=== PATIENT | female | born 1960 | race African-American/Black ===

== ENCOUNTER 2016-07-09 08:19 | Day surgery (SDC) | payer BC, MEDICAID, OTHER ==
[~2016-07-09 08:19] MED LIST: CHONDR SU A NA/HYALUR INTRAOC KIT (SURGICARE) ONE; EPINEPHRINE INJ/PF 1 MG/1 ML AMPULE ONE; KETOROLAC TROMETHAMINE 0.45% 4 DROP/0.4 ML DROPERETTE OS PRN; LIDOCAINE 1% INJ-PF (10 MG/ML) 30 ML SDV ONE
[2016-07-09] MEDS: BESIFLOXACIN HCL 0.6% OPH SUSP 5 ML BOTTLE OS PRN ×4 (09:22→10:14)
[2016-07-09] MEDS: TROPICAMIDE 1% OPH SOLN 3 ML OS PRN ×3 (09:22→09:42)
[2016-07-09] MEDS: CYCLOPENTOLATE 0.2%/PHENYLEPHRINE 1% OPH SOLN 2 ML OS PRN ×3 (09:22→09:42)
[2016-07-09] MEDS: TETRACAINE HCL 0.5% OPH SOLN 0.6 ML DROPERETTE OS PRN ×3 (09:23→09:58)
[2016-07-09] MEDS ORDERED: FENTANYL CITRATE INJ/PF 100 MCG/2 ML AMPUL ONE (09:33)
[2016-07-09] MEDS ORDERED: MIDAZOLAM 2 MG/2 ML INJ ONE (09:33)
[2016-07-09] MEDS: TOBRAMYCIN SULFATE/DEXAMETH OPH OINTMENT 3.5 GM ONE ×2 (10:07→10:14)
== END 2016-07-09 11:03 | disposition home or self-care (01) ==
LOC: SC 08:19
PROVIDERS: ATTEND Ophthalmology
PROC: 08RK3JZ Replacement of Left Lens with Synthetic Substitute, Percutaneous Approach (ICD-10-PCS; principal; 2016-07-09 09:45)
DX: H25.12 Age-related nuclear cataract, left eye (principal); Z79.899 Other long term (current) drug therapy; Z79.84 Long term (current) use of oral hypoglycemic drugs; Z88.6 Allergy status to analgesic agent; Z88.0 Allergy status to penicillin; E11.9 Type 2 diabetes mellitus without complications; I10 Essential (primary) hypertension; E78.00 Pure hypercholesterolemia, unspecified; E03.9 Hypothyroidism, unspecified; Z79.4 Long term (current) use of insulin; G20 Parkinson's disease
CPT/HCPCS: 82962; 66984; V2630; J2250; J3490 ×5; J0171; J3010; 142

== ENCOUNTER → 2016-08-15 | Outpatient (CLI) | payer MEDICAID, OTHER | LOC: RAD 10:30 | DX: M25.621 Stiffness of right elbow, not elsewhere classified (principal); M25.631 Stiffness of right wrist, not elsewhere classified; M25.672 Stiffness of left ankle, not elsewhere classified; M25.671 Stiffness of right ankle, not elsewhere classified ==

== ENCOUNTER → 2016-08-19 | Outpatient (CLI) | payer MEDICAID | LOC: WI 10:33 | PROVIDERS: ATTEND Internal Medicine | DX: Z12.31 Encounter for screening mammogram for malignant neoplasm of breast (principal) | CPT/HCPCS: 77067; G0202 ==

== ENCOUNTER → 2016-09-29 | Outpatient (CLI) | payer MEDICAID ==
--- NOTE | 2016-09-29 10:29 | RADIOLOGY REPORT (SQ) ---
EXAM DESCRIPTION: HIP LEFT AP/LATERAL COMPLETED DATE/TIME: 09/29/2016 9:25 am REASON FOR STUDY: PAIN IN LEFT HIP M25.552 PAIN IN LEFT HIP COMPARISON: None. NUMBER OF VIEWS: Two views. TECHNIQUE: AP pelvis and additional frog-leg view of the left hip. LIMITATIONS: None. FINDINGS: MINERALIZATION: Normal. LEFT HIP: No fracture or dislocation. No worrisome bone lesions. RIGHT HIP: No fracture or dislocation. No worrisome bone lesions. PUBIS AND ISCHIUM: No fracture. PELVIS: No fracture. SACRUM: No fracture or dislocation. No worrisome bone lesions. LOWER LUMBAR SPINE: No fracture or dislocation. No worrisome bone lesions. No significant disc disea se. SOFT TISSUES: No findings. OTHER: No other significant finding. IMPRESSION: NEGATIVE STUDY OF THE LEFT HIP AND PELVIS. NO RADIOGRAPHIC EVIDENCE OF ACUTE INJURY. TECHNICAL DOCUMENTATION: JOB ID: [id number] [employer]- All Rights Reserved
== END ==
LOC: RAD 09:09
PROVIDERS: ATTEND Internal Medicine
DX: M25.552 Pain in left hip (principal)

== ENCOUNTER → 2016-11-27 | Outpatient (CLI) | payer MEDICAID ==
--- NOTE | 2016-11-27 11:27 | RADIOLOGY REPORT (SQ) ---
EXAM DESCRIPTION: ARTERIAL LOWER EXTREM BILAT COMPLETED DATE/TIME: 11/27/2016 10:39 am REASON FOR STUDY: PAD I70.25 ATHSCL [place] ARTERIES OF EXTREMITIES W ULCERATION COMPARISON: None. TECHNIQUE: Dynamic and static lu scale and color images acquired of the lower extremity arteries. Additional selected spectral images recorded. ABIs recorded. LIMITATIONS: None. FINDINGS: RIGHT LEG: ABIS: Normal, over 1.0. INFLOW ARTERIES: Normal, no obstruction evident. FEMORAL ARTERIES:Multiphasic waveforms. Normal, no velocity elevation to suggest focal stenosis. Norm al color Doppler evaluation. No aneurysm. POPLITEAL ARTERY:Multiphasic waveforms. Normal, no velocity elevation to suggest focal stenosis. Norm al color Doppler evaluation. No aneurysm. PATENT TIBIOPERONEAL TRUNK AND 3 VESSEL RUNOFF: Yes, normal vessels. TBI: Not performed. OTHER: Toe plethysmography was performed. No odor discernible waveform in the right great toe. The right 2nd, 3rd, 4th, and 5th toes demonstrate normal waveforms with brisk upstrokes. LEFT LEG: ABIS: Normal, over 1.0. INFLOW ARTERIES: Normal, no obstruction evident. FEMORAL ARTERIES:Multiphasic waveforms. Normal, no velocity elevation to suggest focal stenosis. Norm al color Doppler evaluation. No aneurysm. POPLITEAL ARTERY:Multiphasic waveforms. Normal, no velocity elevation to suggest focal stenosis. Norm al color Doppler evaluation. No aneurysm. PATENT TIBIOPERONEAL TRUNK AND 3 VESSEL RUNOFF: Yes, normal vessels. TBI: Not performed. OTHER: Toe plethysmography is normal. IMPRESSION: NORMAL BILATERAL LOWER EXTREMITY ARTERIAL DOPPLER WITH ABIs. Depressed plethysmography waveforms right great toe, could indicate isolated right great toe arterial insufficiency COMMENT: [facility] NORMAL: Greater than 1.0 MINIMAL DISEASE: 0.9 to 1.0 CLAUDICATION: 0.5 to 0.9 SEVERE ARTERIAL DISEASE: Less than 0.5 [facility] NORMAL: Greater than 1.0 (1.2 If Heavy Calcifications) NORMAL TO MILD ISCHEMIA: 0.8 to 1.0 MODERATE ISCHEMIA: 0.4 to 0.8 SEVERE ISCHEMIA: Less than 0.4 TECHNICAL DOCUMENTATION: JOB ID: [id number] [employer]- All Rights Reserved
== END ==
LOC: SP 09:31
PROVIDERS: ATTEND Preventive Medicine Undersea and Hyperbaric Medicine
DX: I70.25 Atherosclerosis of native arteries of other extremities with ulceration (principal)
CPT/HCPCS: 93925

== ENCOUNTER → 2017-01-27 | Outpatient (CLI) | payer MEDICAID ==
--- NOTE | 2017-01-27 13:28 | RADIOLOGY REPORT (SQ) ---
EXAM DESCRIPTION: MRI HEAD WITHOUT COMPLETED DATE/TIME: 01/27/2017 12:48 pm REASON FOR STUDY: EXTRAPYRAMIDAL G25.9 EXTRAPYRAMIDAL AND MOVEMENT DISORDER, UNSPECIFIED COMPARISON: None. TECHNIQUE: Multiplanar imaging includes non-contrasted T1, T2, FLAIR, and diffusion with ADC map seq uences. Images stored on PACS. LIMITATIONS: None. FINDINGS: ANATOMY: No developmental anomalies. Normal vascular flow voids. Pituitary fossa normal. CSF SPACES: Normal in size and contour. No hemorrhage. CEREBRUM: Sulci and gyri normal in size and contour. Spotty increased bifrontal and biparietal white matter signal on FLAIR imaging from small vessel disease. No evidence of hemorrhage, mass, or extra axial fluid collection. POSTERIOR FOSSA: Decreased cons acuity of the substantia nigra on axial T2 and FLAIR. This could cor relate with parkinsonism. No hemorrhage. No edema, masses or mass effect. Internal auditory canals, cerebello-pontine angles, mastoids normal. DIFFUSION IMAGING: Negative for acute or sub-acute infarction. ORBITS: No masses. Globes post cataract surgery. PARANASAL SINUSES: No fluid levels. Mucosa normal. OTHER: No other significant finding. IMPRESSION: Substantia nigra poorly visualized on the T2 and FLAIR images. This may correlate with parkinsonism. Minimal age-appropriate biparietal small vessel disease EVIDENCE OF ACUTE STROKE: NO. TECHNICAL DOCUMENTATION: JOB ID: [id number] [employer]- All Rights Reserved
== END ==
LOC: RAD 13:01
PROVIDERS: ATTEND Internal Medicine
DX: G25.9 Extrapyramidal and movement disorder, unspecified (principal)
CPT/HCPCS: 70551

== ENCOUNTER → 2017-04-10 | Outpatient (CLI) | payer MEDICAID ==
--- NOTE | 2017-04-10 12:00 | RADIOLOGY REPORT (SQ) ---
EXAM DESCRIPTION: HIP LEFT AP/LATERAL COMPLETED DATE/TIME: 04/10/2017 11:47 am REASON FOR STUDY: PAIN IN LEFT HIP M25.562 PAIN IN LEFT KNEE M25.552 PAIN IN LEFT HIP COMPARISON: Left hip films 09/29/2016 NUMBER OF VIEWS: Two views. TECHNIQUE: AP pelvis and additional frog-leg view of the left hip. LIMITATIONS: None. FINDINGS: MINERALIZATION: Normal. LEFT HIP: No fracture or dislocation. No worrisome bone lesions. RIGHT HIP: No fracture or dislocation. No worrisome bone lesions. PUBIS AND ISCHIUM: No fracture. PELVIS: No fracture. SACRUM: No fracture or dislocation. No worrisome bone lesions. LOWER LUMBAR SPINE: Lower lumbar facet arthropathy left greater than right at L4-5 and L5-S1 SOFT TISSUES: No findings. OTHER: No other significant finding. IMPRESSION: Degenerative changes lower lumbar spine. No hip or pelvis acute fracture. No significant left hip joint space narrowing or bony spurring. TECHNICAL DOCUMENTATION: JOB ID: [id number] [employer]- All Rights Reserved
--- NOTE | 2017-04-10 12:02 | RADIOLOGY REPORT (SQ) ---
EXAM DESCRIPTION: KNEE LEFT 2 VIEWS COMPLETED DATE/TIME: 04/10/2017 11:47 am REASON FOR STUDY: PAIN IN LEFT KNEE M25.562 PAIN IN LEFT KNEE M25.552 PAIN IN LEFT HIP COMPARISON: None. NUMBER OF VIEWS: Two views. TECHNIQUE: AP and lateral radiographic images acquired of the left knee. LIMITATIONS: None. FINDINGS: MINERALIZATION: Subtle 1 cm area of decreased bone density in the distal left femoral meta physis. This is of uncertain clinical significance. Consider bone scan or MRI for followup BONES: No acute fracture or dislocation. No worrisome bone lesions. JOINT: No suprapatellar knee joint effusion. Moderate patellofemoral compartment joint space narrowi ng and bony spurring. Mild medial and lateral compartment joint space narrowing and bony spurring. SOFT TISSUES: No soft tissue swelling. No radio-opaque foreign body. OTHER: No other significant finding. IMPRESSION: Osteoarthritis. No acute fracture or malalignment. Subtle 1 cm area of demineralization, distal left femoral metaphysis. Consider bone scan or MRI for further evaluation TECHNICAL DOCUMENTATION: JOB ID: [id number]- All Rights Reserved
== END ==
LOC: OD 11:20
PROVIDERS: ATTEND Internal Medicine
DX: M25.562 Pain in left knee (principal); M25.552 Pain in left hip

== ENCOUNTER → 2017-06-17 | Outpatient (CLI) | payer MEDICAID ==
--- NOTE | 2017-06-22 11:21 | XCELERA REPORT ---
[address] [address] Lower Extremity Arterial Evaluation Name: JUN BOSS Age: 56 yrs Gender: Female : 1960 Patient Status: Outpatient Patient Location: Study Date: 06/17/2017 01:24 PM Procedure: A color flow and duplex scan of the lower extremity arteries was performed bilaterally with velocity and waveform anaylsis. Ankle brachial indicies performed. Reason For Study: PVD Ordering Physician: COLLIN MENJIVAR Performed By: Debby Staton Measurements and Calculations Right Left FINE PATCHER PSV 152.4 153.2 cm/sec Prox PFA PSV -94.8 -115.2 cm/sec Prox SFA PSV -117.5 -132.0 cm/sec Mid SFA PSV -110.6 -106.8 cm/sec Dist SFA PSV -95.5 -76.1 cm/sec Prox Pop A PSV 76.1 53.7 cm/sec Dist BORIS PSV 101.2 120.2 cm/sec Dist SEWER BRICKLAYER PSV 88.4 -73.3 cm/sec Corey Pedis PSV 103.1 102.6 cm/sec Right Side Arterial Evaluation Normal velocity and triphasic waveforms noted from the Common Femoral artery to the infregeniculate vessels. 0-19% stenosis at the Femoral artery. Ankle Brachial index is 1.00. Left Side Arterial Evaluation Normal velocity and triphasic waveforms noted from the Common Femoral artery to the infregeniculate vessels. 0-19% stenosis at the Femoral artery. Ankle Brachial index is 1.00. Interpretation Summary No hemodynamically significant lesions in the bilateral lower extremities, on duplex imaging, at rest. : COLLIN MENJIVAR > Mg Yarbrough
== END ==
LOC: SP 13:04
PROVIDERS: ATTEND Internal Medicine
DX: I73.9 Peripheral vascular disease, unspecified (principal); M79.89 Other specified soft tissue disorders
CPT/HCPCS: 93925

== ENCOUNTER → 2017-10-01 | Outpatient (CLI) | payer MEDICAID ==
--- NOTE | 2017-10-01 20:05 | WOMENS IMAGING REPORT ---
EXAM DESCRIPTION: 3D SCREENING MAMMO BILAT COMPLETED DATE/TIME: 10/01/2017 11:22 am REASON FOR STUDY: SCREENING MAMMO Z12.31 ENCNTR SCREEN MAMMOGRAM FOR MALIGNANT NEOPLASM OF [place] COMPARISON: 2017 TECHNIQUE: Standard craniocaudal and mediolateral oblique views of each breast recorded using digita l acquisition and breast tomosynthesis. LIMITATIONS: None. FINDINGS: No masses, calcifications or architectural distortion. No areas of suspicion. Read with the assistance of CAD. .[facility] - R2 Cenova Version 1.3 .[facility] - R2 Cenova Version 1.3 .[facility] - R2 Cenova Version 2.4 .[facility] [place] - R2 Cenova Version 2.4 .[facility] - R2 Supercharger Mechanic Version 9.2 IMPRESSION: NORMAL MAMMOGRAM. BIRADS 1. BREAST DENSITY: b. There are scattered areas of fibroglandular density. BIRAD: 1 NEGATIVE RECOMMENDATION: ROUTINE SCREENING Please continue yearly bilateral screening tomosynthesis in September 2018 COMMENT: The patient has been notified of the results by letter per MQSA requirements. Additional no tification policies are in place for contacting patient with suspicious or incomplete findings. Quality ID #[id number]: The [employer] recommends an annual screening mammogram for women aged 40 years or over. This facility utilizes a reminder system to ensure that all patients receive reminder letters, and/or direct phone calls for appointments. This includes reminders for routine scr eening mammograms, diagnostic mammograms, or other Breast Imaging Interventions when appropriate. Th is patient will be placed in the appropriate reminder system. The [employer] (ACR) has developed recommendations for screening MRI of the breast s in certain patient populations, to be used in conjunction with mammography. Breast MRI surveillanc e may be appropriate for women with more than 20% lifetime risk of developing breast cancer as deter mined by genetic testing, significant family history of the disease, or history of mantle radiation f or Hodgkins Disease. ACR Practice Guidelines 2008. DBT Technology DBT is a type of tomographic mammography. With conventional mammography, overlapping breast tissue ma y make lesions difficult to detect, even with good compression. DBT uses an x-ray tube that rotates a round the breast, taking images at different angles. These images are then combined to create thin sl ices of the breast that the radiologist can view as a 3D reconstruction. The [employer] unit can perform full-field digital mammograms (2D imaging); or DBT (3D imaging); or both, in a combination mode that quickly performs both the mammogram and the tomosynthesis scan while the breast is still compressed. PQRS 6045F: Fluoroscopic imaging is not utilized for breast tomosynthesis. TECHNICAL DOCUMENTATION: FINDING NUMBER: (1) ASSESSMENT: (1) JOB ID: [id number] [employer]- All Rights Reserved Reading location - IP/workstation name: [email or web address]
== END ==
LOC: RAD 10:53
PROVIDERS: ATTEND Internal Medicine
DX: Z12.31 Encounter for screening mammogram for malignant neoplasm of breast (principal)
CPT/HCPCS: 77063; 77067

== ENCOUNTER 2017-10-22 12:15 | Inpatient (IN) | payer MEDICAID ==
--- NOTE | 2017-10-22 13:16 | ER Document Report ---
ED Medical Screen (RME) - General Chief Complaint: Urinary Frequency Stated Complaint: PAINFUL URINATION Time Seen by Provider: 10/22/17 13:13 Notes: 57-year-old diabetic complains of 2 day history of excessive urination, with large-volume and with dysuria. She called her primary care provider a little while ago during lunch, and since no unanswered she came to the emergency room. I have greeted and performed a rapid initial assessment of this patient. A comprehensive ED assessment and evaluation of the patient, analysis of test results and completion of the medical decision making process will be conducted by additional ED providers. TRAVEL OUTSIDE OF THE [place] IN LAST 30 DAYS: No - Related Data Allergies/Adverse Reactions: Penicillins Allergy (Verified 10/22/17 13:10) Swelling of Throat aspirin Adverse Reaction (Intermediate, Verified 10/22/17 13:10) Past Medical History - Social History Chew tobacco use (# tins/day): No Frequency of alcohol use: None Drug Abuse: None - Past Medical History Cardiac Medical History: Reports: Hx Hypertension Denies: Hx Heart Attack Pulmonary Medical History: Denies: Hx Asthma Neurological Medical History: Denies: Hx Cerebrovascular Accident, Hx Seizures Renal/ Medical History: Denies: Hx Peritoneal Dialysis GI Medical History: Denies: Hx Hepatitis, Hx Hiatal Hernia, Hx Ulcer Infectious Medical History: Denies: Hx Hepatitis Past Surgical History: Denies: Hx Mastectomy, Hx Open Heart Surgery, Hx Pacemaker Physical Exam - Vital signs Vitals: Temp Pulse Resp BP Pulse Ox 98.6 F 68 16 125/58 L 97 10/22/17 12:44 10/22/17 12:44 10/22/17 12:44 10/22/17 12:44 10/22/17 12:44 Course - Vital Signs Vital signs: Temp Pulse Resp BP Pulse Ox 98.6 F 68 16 125/58 L 97 10/22/17 12:44 10/22/17 12:44 10/22/17 12:44 10/22/17 12:44 10/22/17 12:44 Doctor's Discharge - Discharge Referrals: COLLIN MENJIVAR MD [Primary Care Provider] - Follow up as needed
[2017-10-22] MEDS ORDERED: NORMAL SALINE 1000 ML 1,000 ML IV ONE (13:53)
[2017-10-22 14:04] LABS: APPEARANCE,URINE CLEAR; BILIRUBIN,URINE NEGATIVE (NEGATIVE); COLOR,URINE YELLOW; GLUCOSE, URINE >=500 mg/dL (NEGATIVE); KETONES,URINE NEGATIVE (NEGATIVE); LEUKOCYTE ESTERASE,URINE NEGATIVE (NEGATIVE); NITRITE,URINE NEGATIVE (NEGATIVE); PROTEIN,URINE NEGATIVE (NEGATIVE); UROBILINOGEN,URINE NEGATIVE mg/dL (<2.0)
[2017-10-22 14:05] LABS: ABSOLUTE EOSINOPHILS # (AUTO) 0.1 10^3/uL (0.0-0.6); ABSOLUTE LYMPHOCYTES (AUTO) 1.7 10^3/uL (0.5-4.7); ABSOLUTE MONOCYTES (AUTO) 0.2 10^3/uL (0.1-1.4); ABSOLUTE NEUT (AUTO) 1.9 10^3/uL (1.7-8.2); BASOPHILS % (AUTO) 1.2 % (0-2); HEMATOCRIT 36.9 % (36.0-47.0); HEMOGLOBIN 12.5 g/dL (12.0-15.5); LYMPHOCYTES % (AUTO) 42.4 % (13-45); MEAN CORPUSCULAR HEMOGLOBIN 30.7 pg (27.0-33.4); MEAN CORPUSCULAR VOLUME 90 fl (80-97); MONOCYTES % (AUTO) 5.8 % (3-13); PLATELET COUNT 189 10^3/uL (150-450); RED BLOOD COUNT 4.08 10^6/uL (3.72-5.28); RED CELL DISTRIBUTION WIDTH 12.3 % (11.5-14.0); SEGMENTED NEUTROPHILS % (AUTO) 48.6 % (42-78); TOTAL CELLS COUNTED % (AUTO) 100 %
[2017-10-22 14:26] LABS: ALANINE AMINOTRANSFERASE 30 U/L (9-52); ALBUMIN 3.8 g/dL (3.5-5.0); ALKALINE PHOSPHATASE 178 U/L (38-126); ANION GAP 10 (5-19); ASPARTATE AMINO TRANSFERASE 81 U/L (14-36); BILIRUBIN,DIRECT 0.4 mg/dL (0.0-0.4); BILIRUBIN,TOTAL 0.4 mg/dL (0.2-1.3); BLOOD UREA NITROGEN 36 mg/dL (7-20); CALCIUM 8.9 mg/dL (8.4-10.2); CARBON DIOXIDE 31 mmol/L (22-30); CHLORIDE 92 mmol/L (98-107); POTASSIUM 4.6 mmol/L (3.6-5.0); SODIUM 132.5 mmol/L (137-145); TOTAL PROTEIN 7.4 g/dL (6.3-8.2)
--- NOTE | 2017-10-22 14:45 | ER Document Report ---
ED General - General Chief Complaint: Urinary Frequency Stated Complaint: PAINFUL URINATION Time Seen by Provider: 10/22/17 13:13 Mode of Arrival: Ambulatory Information source: Patient Notes: 57 year old female with a history of diabetes presents emergency department with a 2-day history of dysuria, increased urgency, increased frequency. Patient states that her blood sugar has been running high the last couple of days. Patient has been unable to get into her primary care physician's office this week. Patient is concerned that she has a urinary tract infection. Patient denies any abdominal pain, nausea, vomiting, diarrhea, constipation. Patient also denies any vaginal bleeding, vaginal discharge. TRAVEL OUTSIDE OF THE [place] IN LAST 30 DAYS: No - HPI Onset: Other - 2 days Onset/Duration: Gradual Quality of pain: Burning Severity: Mild Associated symptoms: None Exacerbated by: Denies Relieved by: Denies Similar symptoms previously: Yes Recently seen / treated by doctor: No - Related Data Allergies/Adverse Reactions: Penicillins Allergy (Verified 10/22/17 13:10) Swelling of Throat aspirin Adverse Reaction (Intermediate, Verified 10/22/17 13:10) Past Medical History - General Information source: Patient - Social History Smoking Status: Never Smoker Chew tobacco use (# tins/day): No Frequency of alcohol use: None Drug Abuse: None Family History: Reviewed & Not Pertinent Patient has suicidal ideation: No Patient has homicidal ideation: No - Past Medical History Cardiac Medical History: Reports: Hx Hypertension Denies: Hx Heart Attack Pulmonary Medical History: Denies: Hx Asthma Neurological Medical History: Denies: Hx Cerebrovascular Accident, Hx Seizures Renal/ Medical History: Denies: Hx Peritoneal Dialysis GI Medical History: Denies: Hx Hepatitis, Hx Hiatal Hernia, Hx Ulcer Infectious Medical History: Denies: Hx Hepatitis Past Surgical History: Denies: Hx Mastectomy, Hx Open Heart Surgery, Hx Pacemaker Review of Systems - Review of Systems Constitutional: No symptoms reported EENT: No symptoms reported Cardiovascular: No symptoms reported Respiratory: No symptoms reported Gastrointestinal: No symptoms reported Genitourinary: Burning, Dysuria, Frequency, Urgency Female Genitourinary: No symptoms reported Musculoskeletal: No symptoms reported Skin: No symptoms reported Hematologic/Lymphatic: No symptoms reported Neurological/Psychological: No symptoms reported -: Yes All other systems reviewed and negative Physical Exam - Vital signs Vitals: Temp Pulse Resp BP Pulse Ox 98.6 F 68 16 125/58 L 97 07/05/18 12:44 10/22/17 12:44 10/22/17 12:44 10/22/17 12:44 10/22/17 12:44 Interpretation: Normal - Notes Notes: PHYSICAL EXAMINATION: GENERAL: Well-appearing, well-nourished and in no acute distress. HEAD: Atraumatic, normocephalic. EYES: Pupils equal round and reactive to light, extraocular movements intact, conjunctiva are normal. ENT: Nares patent, oropharynx clear without exudates. Moist mucous membranes. NECK: Normal range of motion, supple without lymphadenopathy LUNGS: Breath sounds clear to auscultation bilaterally and equal. No wheezes rales or rhonchi. HEART: Regular rate and rhythm without murmurs ABDOMEN: Soft, nontender, nondistended abdomen. No guarding, no rebound. No masses appreciated. Female : deferred Musculoskeletal: Normal range of motion, no pitting or edema. No cyanosis. NEUROLOGICAL: Cranial nerves grossly intact. Normal speech, normal gait. Normal sensory, motor exams PSYCH: Normal mood, normal affect. SKIN: Warm, Dry, normal turgor, no rashes or lesions noted. Course - Re-evaluation Re-evalutation: 10/22/17 15:19 UA is normal. Patient's blood sugar greater than 600. Patient in hyperosmolar hyperglycemic state. I spoke with Dr. Menjivar. He would like the patient started on an insulin drip without bolus. He's agreeable with admitting the patient. Patient currently stable. - Vital Signs Vital signs: Temp Pulse Resp BP Pulse Ox 98.6 F 68 16 125/58 L 97 10/22/17 12:44 10/22/17 12:44 10/22/17 12:44 10/22/17 12:44 10/22/17 12:44 - Laboratory Result Diagrams: 10/22/17 13:32 10/22/17 13:32 Laboratory results interpreted by me: 10/22/17 10/22/17 10/22/17 13:32 13:32 13:32 Sodium 132.5 L Chloride 92 L Carbon Dioxide 31 H BUN 36 H Creatinine 1.43 H Est GFR ( Amer) 45 L Est GFR (Non-Af Amer) 38 L Glucose 669 H* Hemoglobin A1c % 10.0 H AST 81 H Alkaline Phosphatase 178 H Urine Glucose (UA) >=500 H Discharge - Discharge Clinical Impression: Diabetic hyperosmolar non-ketotic state Condition: Good Disposition: ADMITTED OBSERVATION Admitting Provider: Duc Unit Admitted: Medical Floor Referrals: COLLIN MENJIVAR MD [Primary Care Provider] - Follow up as needed
[2017-10-22 14:46] LABS: GLUCOSE 669 mg/dL (75-110)
[2017-10-22] MEDS ORDERED: INSULIN REG, HUMAN 100 UNIT/ML 3 ML VIAL (PYX) IV ONE (14:52)
[2017-10-22 15:42] LABS: VENOUS BLOOD HCO3 27.8 mmol/L (20-32); VENOUS BLOOD PH 7.33 (7.30-7.42)
[2017-10-22] MEDS ORDERED: DEXTROSE 50%-WATER SYRINGE 12.5 GM/25 ML DOSE IV PRN (17:01)
[2017-10-22] MEDS ORDERED: INSULIN, REGULAR 100 UNIT/100 ML NORMAL SALINE IV PRN ×2 (17:01)
[2017-10-22] MEDS ORDERED: DEXTROSE 50%-WATER SYRINGE 25 GM/50 ML DOSE IV PRN (17:01)
[2017-10-22] MEDS ORDERED: DEXTROSE 40% GEL 15 GM TUBE X 2 PO PRN (17:01)
[2017-10-22] MEDS ORDERED: GLUCAGON,HUMAN RECOMB 1 MG INJ IM PRN ×2 (17:01→19:00)
[2017-10-22] MEDS ORDERED: DEXTROSE 40% GEL 15 GM TUBE PO PRN ×3 (17:01→19:00)
[2017-10-22] MEDS ORDERED: INSULIN REG, HUMAN 100 UNIT/ML 3 ML VIAL (PYX) ONE (17:40)
[2017-10-22] MEDS ORDERED: POTASSI CL 40 MEQ/NS 1L 1,000 ML IV PRN (18:55)
[2017-10-22] MEDS ORDERED: DEXTROSE 50%-WATER 25 GM/50 ML DISP.SYRIN IV PRN ×2 (19:00)
[2017-10-22] MEDS ORDERED: (PENDING PHARMACY ID) (Lurasidone Hcl [Latuda] 20 MG) PO SCH (19:15)
[2017-10-22] MEDS ORDERED: (PENDING PHARMACY ID) (Lisinopril [Prinivil] 20 MG) PO SCH (19:15)
[2017-10-22 19:42] LABS: URINE AMPHETAMINES SCREEN NEGATIVE; URINE BARBITURATES SCREEN NEGATIVE; URINE BENZODIAZEPINES SCREEN NEGATIVE; URINE COCAINE SCREEN NEGATIVE; URINE MARIJUANA (THC) SCREEN NEGATIVE; URINE METHADONE SCREEN NEGATIVE; URINE PHENCYCLIDINE SCREEN NEGATIVE
[2017-10-22] MEDS ORDERED: NORMAL SALINE 100 ML with INSULIN REGULAR, HUMAN 100 UNIT IV PRN ×2 (20:00)
[2017-10-22 20:11] LABS: INTERNATIONAL RATION (INR) 0.94
[2017-10-22 20:12] LABS: PARTIAL THROMBOPLASTIN TIME 25.4 SEC (23.5-35.8)
[2017-10-22 20:25] LABS: ANION GAP 9 (5-19); BLOOD UREA NITROGEN 32 mg/dL (7-20); CALCIUM 9.4 mg/dL (8.4-10.2); CARBON DIOXIDE 28 mmol/L (22-30); CHLORIDE 100 mmol/L (98-107); CREATINE KINASE 86 U/L (30-135); GLUCOSE 397 mg/dL (75-110); POTASSIUM 4.6 mmol/L (3.6-5.0); SODIUM 137.3 mmol/L (137-145)
[2017-10-22 20:26] LABS: LIPASE 600.5 U/L (23-300); PHOSPHORUS 4.4 mg/dL (2.5-4.5)
[2017-10-22 20:35] LABS: FREE T4 (FREE THYROXINE) 1.56 ng/dL (0.78-2.19)
[2017-10-22] MEDS ORDERED: (PENDING PHARMACY ID) (Dapagliflozin Propanediol [Farxiga] 10 MG) PO SCH (20:45)
[2017-10-22 20:49] LABS: THYROID STIMULATING HORMONE 0.03 uIU/mL (0.47-4.68)
[2017-10-22] MEDS: INSULIN GLARGINE,HUM.REC.ANLOG 300 UNIT/3 ML INSULN.PEN SUBCUT SCH (22:16)
[2017-10-22] MEDS: HEPARIN SOD (PORCINE) 5,000 UNIT/ML 1 ML SYRINGE SUBCUT SCH (22:16)
[2017-10-22] MEDS: CARBIDOPA/LEVODOPA 25-100 MG TABLET PO SCH (22:17)
[2017-10-22] MEDS: ATORVASTATIN CALCIUM 40 MG TABLET PO SCH (22:18)
[2017-10-22] MEDS: TRAZODONE HCL 50 MG TABLET PO SCH (22:18)
[2017-10-23 00:06] LABS: ANION GAP 7 (5-19); BLOOD UREA NITROGEN 32 mg/dL (7-20); CALCIUM 8.6 mg/dL (8.4-10.2); CARBON DIOXIDE 28 mmol/L (22-30); CHLORIDE 103 mmol/L (98-107); GLUCOSE 281 mg/dL (75-110); POTASSIUM 4.3 mmol/L (3.6-5.0); SODIUM 137.7 mmol/L (137-145)
[2017-10-23 03:33] LABS: APPEARANCE,URINE CLEAR; BILIRUBIN,URINE NEGATIVE (NEGATIVE); COLOR,URINE YELLOW; GLUCOSE, URINE >=500 mg/dL (NEGATIVE); KETONES,URINE NEGATIVE (NEGATIVE); LEUKOCYTE ESTERASE,URINE NEGATIVE (NEGATIVE); NITRITE,URINE NEGATIVE (NEGATIVE); PROTEIN,URINE 100 mg/dL (NEGATIVE); URINE SPECIFIC GRAVITY 1.017; UROBILINOGEN,URINE NEGATIVE mg/dL (<2.0)
[2017-10-23 05:01] LABS: ANION GAP 8 (5-19); BLOOD UREA NITROGEN 33 mg/dL (7-20); CALCIUM 8.8 mg/dL (8.4-10.2); CARBON DIOXIDE 27 mmol/L (22-30); CHLORIDE 105 mmol/L (98-107); GLUCOSE 99 mg/dL (75-110); POTASSIUM 4.5 mmol/L (3.6-5.0)
[2017-10-23] MEDS: HEPARIN SOD (PORCINE) 5,000 UNIT/ML 1 ML SYRINGE SUBCUT SCH ×3 (06:42→21:22)
[2017-10-23] MEDS: CARBIDOPA/LEVODOPA 25-100 MG TABLET PO SCH ×3 (06:42→21:23)
[2017-10-23 07:20] LABS: ABSOLUTE BASOPHILS # (AUTO) 0.1 10^3/uL (0.0-0.2); ABSOLUTE EOSINOPHILS # (AUTO) 0.1 10^3/uL (0.0-0.6); ABSOLUTE LYMPHOCYTES (AUTO) 1.9 10^3/uL (0.5-4.7); ABSOLUTE MONOCYTES (AUTO) 0.3 10^3/uL (0.1-1.4); ABSOLUTE NEUT (AUTO) 1.7 10^3/uL (1.7-8.2); BASOPHILS % (AUTO) 1.5 % (0-2); EOSINOPHILS % (AUTO) 3.1 % (0-6); HEMATOCRIT 33.2 % (36.0-47.0); HEMOGLOBIN 11.7 g/dL (12.0-15.5); LYMPHOCYTES % (AUTO) 47.3 % (13-45); MEAN CORPUSCULAR HEMOGLOBIN 30.9 pg (27.0-33.4); MEAN CORPUSCULAR HGB CONC 35.3 g/dL (32.0-36.0); MEAN CORPUSCULAR VOLUME 88 fl (80-97); MONOCYTES % (AUTO) 6.2 % (3-13); PLATELET COUNT 177 10^3/uL (150-450); RED BLOOD COUNT 3.79 10^6/uL (3.72-5.28); SEGMENTED NEUTROPHILS % (AUTO) 41.9 % (42-78); TOTAL CELLS COUNTED % (AUTO) 100 %; WHITE BLOOD COUNT 4.1 10^3/uL (4.0-10.5)
[2017-10-23 07:42] LABS: ALANINE AMINOTRANSFERASE 33 U/L (9-52); ALBUMIN 3.1 g/dL (3.5-5.0); ALKALINE PHOSPHATASE 92 U/L (38-126); ANION GAP 8 (5-19); ASPARTATE AMINO TRANSFERASE 79 U/L (14-36); BILIRUBIN,DIRECT 0.3 mg/dL (0.0-0.4); BILIRUBIN,TOTAL 0.4 mg/dL (0.2-1.3); BLOOD UREA NITROGEN 31 mg/dL (7-20); CALCIUM 8.8 mg/dL (8.4-10.2); CARBON DIOXIDE 27 mmol/L (22-30); CHLORIDE 104 mmol/L (98-107); CHOLESTEROL 105.11 mg/dL (0-200); CREATINE KINASE 84 U/L (30-135); GLUCOSE 128 mg/dL (75-110); POTASSIUM 4.4 mmol/L (3.6-5.0); SODIUM 138.6 mmol/L (137-145); TOTAL PROTEIN 6.4 g/dL (6.3-8.2); TRIGLYCERIDES 159 mg/dL (<150)
[2017-10-23 07:54] LABS: DIRECT LDL < 30 mg/dL (<100); VLDL CHOLESTEROL 31.8 mg/dL (10-31)
[2017-10-23] MEDS: LISINOPRIL 10 MG TABLET PO SCH (09:22)
[2017-10-23] MEDS: ESCITALOPRAM OXALATE 10 MG TABLET PO SCH (09:23)
[2017-10-23] MEDS: METFORMIN HCL 500 MG TABLET PO SCH ×2 (09:24→17:30)
[2017-10-23] MEDS: NORMAL SALINE 1000 ML 1,000 ML IV PRN ×2 (10:02→16:56)
[2017-10-23 12:04] LABS: ANION GAP 10 (5-19); BLOOD UREA NITROGEN 28 mg/dL (7-20); CALCIUM 8.3 mg/dL (8.4-10.2); CARBON DIOXIDE 25 mmol/L (22-30); CHLORIDE 105 mmol/L (98-107); GLUCOSE 118 mg/dL (75-110); POTASSIUM 4.3 mmol/L (3.6-5.0); SODIUM 139.7 mmol/L (137-145)
[2017-10-23 17:17] LABS: ANION GAP 5 (5-19); BLOOD UREA NITROGEN 29 mg/dL (7-20); CALCIUM 8.3 mg/dL (8.4-10.2); CARBON DIOXIDE 28 mmol/L (22-30); CHLORIDE 104 mmol/L (98-107); GLUCOSE 118 mg/dL (75-110); POTASSIUM 4.4 mmol/L (3.6-5.0); SODIUM 137.4 mmol/L (137-145)
--- NOTE | 2017-10-23 19:47 | PDOC H&P ---
History of Present Illness Admission Date/PCP: 10/22/17 15:30 COLLIN MENJIVAR MD History of Present Illness: JUN BOSS is a 57 year old female, She has a history of type 2 diabetes mellitus, she was relatively well controlled on Metformin and farxiga ,she came to the emergency room for evaluation of, polyuria, polydipsia, frequency of urination, she thought she had a UTI ,in the emergency room she was evaluated the serum glucose was 670, she was showing signs of hyperosmolar, nonketotic state. Because of the hyperosmolar nonketotic hyperglycemic state the emergency room physician felt patient needed to be admitted to the hospital for management. Past Medical History Cardiac Medical History: Reports: Hypertension Neurological Medical History: Reports: Other - Parkinson disease Endocrine Medical History: Reports: Diabetes Mellitus Type 2 Psychiatric Medical History: Reports: Depression Social History Smoking Status: Never Smoker Frequency of Alcohol Use: None Hx Recreational Drug Use: No Drugs: None Hx Prescription Drug Abuse: No - Advance Directive Resuscitation Status: Full Code Family History Family History: Reviewed & Not Pertinent Parental Family History Reviewed: Yes Children Family History Reviewed: Yes Sibling(s) Family History Reviewed.: Yes Medication/Allergy Home Medications: Atorvastatin Calcium [Lipitor 40 mg Tablet] 40 mg PO QHS 07/03/16 Lisinopril [Prinivil] 20 mg PO DAILY 07/03/16 Metformin HCl 500 mg PO BID 07/03/16 Carbidopa/Levodopa [Sinemet 25-100 mg Tablet] 1 each PO Q8 10/22/17 Dapagliflozin Propanediol [Farxiga] 10 mg PO DAILY 10/22/17 Escitalopram Oxalate [Lexapro 10 mg Tablet] 15 mg PO DAILY 10/22/17 Lurasidone HCl [Latuda] 20 mg PO DAILY 10/22/17 Trazodone HCl [Desyrel 50 mg Tablet] 100 mg PO HSP PRN 10/22/17 Allergies/Adverse Reactions: Penicillins Allergy (Verified 10/22/17 13:10) Swelling of Throat aspirin Adverse Reaction (Intermediate, Verified 10/22/17 13:10) Review of Systems Constitutional: PRESENT: chills Eyes: ABSENT: visual disturbances Ears: ABSENT: hearing changes Cardiovascular: ABSENT: chest pain, dyspnea on exertion, edema, orthropnea, palpitations Respiratory: ABSENT: cough, hemoptysis Gastrointestinal: ABSENT: abdominal pain, constipation, diarrhea, hematemesis, hematochezia, nausea, vomiting Genitourinary: ABSENT: dysuria, hematuria Musculoskeletal: ABSENT: joint swelling Integumentary: ABSENT: rash, wounds Neurological: ABSENT: abnormal gait, abnormal speech, confusion, dizziness, focal weakness, syncope Psychiatric: ABSENT: anxiety, depression, homidical ideation, suicidal ideation Endocrine: PRESENT: polydipsia, polyuria Hematologic/Lymphatic: ABSENT: easy bleeding, easy bruising, lymphadenopathy Physical Exam Vital Signs: Temp Pulse Resp BP Pulse Ox 98.6 F 67 16 146/66 H 98 10/23/17 15:18 10/23/17 15:18 10/23/17 15:18 10/23/17 15:18 10/23/17 15:18 Intake & Output 10/22/17 10/23/17 10/24/17 06:59 06:59 06:59 Intake Total 400 2368 Output Total 650 Balance -250 2368 Weight 81.4 kg General appearance: PRESENT: no acute distress Head exam: PRESENT: atraumatic, normocephalic Eye exam: PRESENT: conjunctiva pink, EOMI, PERRLA Mouth exam: PRESENT: dry mucosa Neck exam: PRESENT: full ROM Respiratory exam: PRESENT: clear to auscultation tiffany Cardiovascular exam: PRESENT: RRR, +S1, +S2 Vascular exam: PRESENT: normal capillary refill GI/Abdominal exam: PRESENT: normal bowel sounds, soft Rectal exam: PRESENT: deferred Neurological exam: PRESENT: alert, awake, oriented to person, oriented to place , oriented to time, oriented to situation, CN II-XII grossly intact Psychiatric exam: PRESENT: appropriate affect, normal mood Skin exam: PRESENT: dry, intact, warm. ABSENT: cyanosis, rash Results Laboratory Results: 10/23/17 07:10 10/23/17 15:55 10/22/17 10/22/17 10/22/17 19:40 19:40 19:40 WBC RBC Hgb Hct MCV MCH MCHC RDW Plt Count Seg Neutrophils % Lymphocytes % Monocytes % Eosinophils % Basophils % Absolute Neutrophils Absolute Lymphocytes Absolute Monocytes Absolute Eosinophils Absolute Basophils Sodium Potassium Chloride Carbon Dioxide Anion Gap BUN Creatinine Est GFR ( Amer) Est GFR (Non-Af Amer) Glucose Calcium Phosphorus 4.4 Magnesium 2.5 H Total Bilirubin AST ALT Alkaline Phosphatase Ammonia < 8.7 L Total Protein Albumin Triglycerides Cholesterol LDL Cholesterol Direct VLDL Cholesterol HDL Cholesterol Amylase 80 Lipase 600.5 H TSH 0.03 L Free T4 1.56 Urine Color Urine Appearance Urine pH Ur Specific [place] Urine Protein Urine Glucose (UA) Urine Ketones Urine Blood Urine Nitrite Ur Leukocyte Esterase Urine WBC (Auto) Urine RBC (Auto) 10/22/17 10/22/17 10/23/17 19:40 23:24 03:00 WBC RBC Hgb Hct MCV MCH MCHC RDW Plt Count Seg Neutrophils % Lymphocytes % Monocytes % Eosinophils % Basophils % Absolute Neutrophils Absolute Lymphocytes Absolute Monocytes Absolute Eosinophils Absolute Basophils Sodium 137.3 137.7 Potassium 4.6 4.3 Chloride 100 103 Carbon Dioxide 28 28 Anion Gap 9 7 BUN 32 H 32 H Creatinine 1.15 1.15 Est GFR ( Amer) 58 L 58 L Est GFR (Non-Af Amer) 48 L 48 L Glucose 397 H 281 H Calcium 9.4 8.6 Phosphorus Magnesium Total Bilirubin AST ALT Alkaline Phosphatase Ammonia Total Protein Albumin Triglycerides Cholesterol LDL Cholesterol Direct VLDL Cholesterol HDL Cholesterol Amylase Lipase TSH Free T4 Urine Color YELLOW Urine Appearance CLEAR Urine pH 5.0 Ur Specific [place] 1.017 Urine Protein 100 H Urine Glucose (UA) >=500 H Urine Ketones NEGATIVE Urine Blood NEGATIVE Urine Nitrite NEGATIVE Ur Leukocyte Esterase NEGATIVE Urine WBC (Auto) 0 Urine RBC (Auto) 1 10/23/17 10/23/17 10/23/17 03:42 07:10 07:10 WBC 4.1 RBC 3.79 Hgb 11.7 L Hct 33.2 L MCV 88 MCH 30.9 MCHC 35.3 RDW 12.0 Plt Count 177 Seg Neutrophils % 41.9 L Lymphocytes % 47.3 H Monocytes % 6.2 Eosinophils % 3.1 Basophils % 1.5 Absolute Neutrophils 1.7 Absolute Lymphocytes 1.9 Absolute Monocytes 0.3 Absolute Eosinophils 0.1 Absolute Basophils 0.1 Sodium 140.0 138.6 Potassium 4.5 4.4 Chloride 105 104 Carbon Dioxide 27 27 Anion Gap 8 8 BUN 33 H 31 H Creatinine 1.26 H 1.13 Est GFR ( Amer) 53 L > 60 Est GFR (Non-Af Amer) 43 L 49 L Glucose 99 128 H Calcium 8.8 8.8 Phosphorus Magnesium Total Bilirubin 0.4 AST 79 H ALT 33 Alkaline Phosphatase 92 Ammonia Total Protein 6.4 Albumin 3.1 L Triglycerides 159 H Cholesterol 105.11 LDL Cholesterol Direct < 30 VLDL Cholesterol 31.8 H HDL Cholesterol 53 Amylase Lipase TSH Free T4 Urine Color Urine Appearance Urine pH Ur Specific [place] Urine Protein Urine Glucose (UA) Urine Ketones Urine Blood Urine Nitrite Ur Leukocyte Esterase Urine WBC (Auto) Urine RBC (Auto) 10/23/17 10/23/17 11:21 15:55 WBC RBC Hgb Hct MCV MCH MCHC RDW Plt Count Seg Neutrophils % Lymphocytes % Monocytes % Eosinophils % Basophils % Absolute Neutrophils Absolute Lymphocytes Absolute Monocytes Absolute Eosinophils Absolute Basophils Sodium 139.7 137.4 Potassium 4.3 4.4 Chloride 105 104 Carbon Dioxide 25 28 Anion Gap 10 5 BUN 28 H 29 H Creatinine 0.91 1.05 Est GFR ( Amer) > 60 > 60 Est GFR (Non-Af Amer) > 60 54 L Glucose 118 H 118 H Calcium 8.3 L 8.3 L Phosphorus Magnesium Total Bilirubin AST ALT Alkaline Phosphatase Ammonia Total Protein Albumin Triglycerides Cholesterol LDL Cholesterol Direct VLDL Cholesterol HDL Cholesterol Amylase Lipase TSH Free T4 Urine Color Urine Appearance Urine pH Ur Specific [place] Urine Protein Urine Glucose (UA) Urine Ketones Urine Blood Urine Nitrite Ur Leukocyte Esterase Urine WBC (Auto) Urine RBC (Auto) 10/22/17 10/22/17 10/23/17 19:40 19:40 01:30 Creatine Kinase 86 75 CK-MB (CK-2) 0.60 10/23/17 10/23/17 10/23/17 01:30 07:10 07:10 Creatine Kinase 84 CK-MB (CK-2) 0.58 0.58 Assessment & Plan - Diagnosis (1) Diabetic hyperosmolar non-ketotic state Is this a current diagnosis for this admission?: Yes Plan: The precipitating etiology for this hyperosmolar nonketotic hyperglycemic state is not clear she has no fever or chills, she denies any noncompliance with her medication, she is started on IV normal saline with insulin drip (2) Acute kidney injury Is this a current diagnosis for this admission?: Yes Plan: This is most likely prerenal (3) Parkinson disease Is this a current diagnosis for this admission?: Yes
--- NOTE | 2017-10-23 19:50 | PDOC PROGRESS REPORT ---
Subjective Progress Note for:: 10/23/17 Subjective:: Patient was admitted yesterday for the management of hyperosmolar state, she is on insulin drip and oral hypoglycemic agent, she will continue present treatment Reason For Visit: HYPEROSMOLAR NONKETOTIC DIABETES MELLITUS Physical Exam Vital Signs: Temp Pulse Resp BP Pulse Ox 98.6 F 67 16 146/66 H 98 10/23/17 15:18 10/23/17 15:18 10/23/17 15:18 10/23/17 15:18 10/23/17 15:18 Intake & Output 10/22/17 10/23/17 10/24/17 06:59 06:59 06:59 Intake Total 400 2368 Output Total 650 Balance -250 2368 Weight 81.4 kg General appearance: PRESENT: no acute distress Head exam: PRESENT: atraumatic, normocephalic Eye exam: PRESENT: PERRLA Ear exam: PRESENT: normal external ear exam Mouth exam: PRESENT: moist, tongue midline Neck exam: PRESENT: full ROM Respiratory exam: PRESENT: clear to auscultation tiffany Cardiovascular exam: PRESENT: RRR Vascular exam: PRESENT: normal capillary refill GI/Abdominal exam: PRESENT: normal bowel sounds, soft Rectal exam: PRESENT: deferred Neurological exam: PRESENT: alert. ABSENT: motor sensory deficit Psychiatric exam: PRESENT: appropriate affect, normal mood Skin exam: PRESENT: dry, intact, warm. ABSENT: cyanosis, rash Results Laboratory Results: 10/23/17 07:10 10/23/17 15:55 10/22/17 10/22/17 10/22/17 19:40 19:40 19:40 WBC RBC Hgb Hct MCV MCH MCHC RDW Plt Count Seg Neutrophils % Lymphocytes % Monocytes % Eosinophils % Basophils % Absolute Neutrophils Absolute Lymphocytes Absolute Monocytes Absolute Eosinophils Absolute Basophils Sodium Potassium Chloride Carbon Dioxide Anion Gap BUN Creatinine Est GFR ( Amer) Est GFR (Non-Af Amer) Glucose Calcium Phosphorus 4.4 Magnesium 2.5 H Total Bilirubin AST ALT Alkaline Phosphatase Ammonia < 8.7 L Total Protein Albumin Triglycerides Cholesterol LDL Cholesterol Direct VLDL Cholesterol HDL Cholesterol Amylase 80 Lipase 600.5 H TSH 0.03 L Free T4 1.56 Urine Color Urine Appearance Urine pH Ur Specific [place] Urine Protein Urine Glucose (UA) Urine Ketones Urine Blood Urine Nitrite Ur Leukocyte Esterase Urine WBC (Auto) Urine RBC (Auto) 10/22/17 10/22/1710/23/18 19:40 23:24 03:00 WBC RBC Hgb Hct MCV MCH MCHC RDW Plt Count Seg Neutrophils % Lymphocytes % Monocytes % Eosinophils % Basophils % Absolute Neutrophils Absolute Lymphocytes Absolute Monocytes Absolute Eosinophils Absolute Basophils Sodium 137.3 137.7 Potassium 4.6 4.3 Chloride 100 103 Carbon Dioxide 28 28 Anion Gap 9 7 BUN 32 H 32 H Creatinine 1.15 1.15 Est GFR ( Amer) 58 L 58 L Est GFR (Non-Af Amer) 48 L 48 L Glucose 397 H 281 H Calcium 9.4 8.6 Phosphorus Magnesium Total Bilirubin AST ALT Alkaline Phosphatase Ammonia Total Protein Albumin Triglycerides Cholesterol LDL Cholesterol Direct VLDL Cholesterol HDL Cholesterol Amylase Lipase TSH Free T4 Urine Color YELLOW Urine Appearance CLEAR Urine pH 5.0 Ur Specific [place] 1.017 Urine Protein 100 H Urine Glucose (UA) >=500 H Urine Ketones NEGATIVE Urine Blood NEGATIVE Urine Nitrite NEGATIVE Ur Leukocyte Esterase NEGATIVE Urine WBC (Auto) 0 Urine RBC (Auto) 1 10/23/17 10/23/17 10/23/17 03:42 07:10 07:10 WBC 4.1 RBC 3.79 Hgb 11.7 L Hct 33.2 L MCV 88 MCH 30.9 MCHC 35.3 RDW 12.0 Plt Count 177 Seg Neutrophils % 41.9 L Lymphocytes % 47.3 H Monocytes % 6.2 Eosinophils % 3.1 Basophils % 1.5 Absolute Neutrophils 1.7 Absolute Lymphocytes 1.9 Absolute Monocytes 0.3 Absolute Eosinophils 0.1 Absolute Basophils 0.1 Sodium 140.0 138.6 Potassium 4.5 4.4 Chloride 105 104 Carbon Dioxide 27 27 Anion Gap 8 8 BUN 33 H 31 H Creatinine 1.26 H 1.13 Est GFR ( Amer) 53 L > 60 Est GFR (Non-Af Amer) 43 L 49 L Glucose 99 128 H Calcium 8.8 8.8 Phosphorus Magnesium Total Bilirubin 0.4 AST 79 H ALT 33 Alkaline Phosphatase 92 Ammonia Total Protein 6.4 Albumin 3.1 L Triglycerides 159 H Cholesterol 105.11 LDL Cholesterol Direct < 30 VLDL Cholesterol 31.8 H HDL Cholesterol 53 Amylase Lipase TSH Free T4 Urine Color Urine Appearance Urine pH Ur Specific [place] Urine Protein Urine Glucose (UA) Urine Ketones Urine Blood Urine Nitrite Ur Leukocyte Esterase Urine WBC (Auto) Urine RBC (Auto) 10/23/17 10/23/17 11:21 15:55 WBC RBC Hgb Hct MCV MCH MCHC RDW Plt Count Seg Neutrophils % Lymphocytes % Monocytes % Eosinophils % Basophils % Absolute Neutrophils Absolute Lymphocytes Absolute Monocytes Absolute Eosinophils Absolute Basophils Sodium 139.7 137.4 Potassium 4.3 4.4 Chloride 105 104 Carbon Dioxide 25 28 Anion Gap 10 5 BUN 28 H 29 H Creatinine 0.91 1.05 Est GFR ( Amer) > 60 > 60 Est GFR (Non-Af Amer) > 60 54 L Glucose 118 H 118 H Calcium 8.3 L 8.3 L Phosphorus Magnesium Total Bilirubin AST ALT Alkaline Phosphatase Ammonia Total Protein Albumin Triglycerides Cholesterol LDL Cholesterol Direct VLDL Cholesterol HDL Cholesterol Amylase Lipase TSH Free T4 Urine Color Urine Appearance Urine pH Ur Specific [place] Urine Protein Urine Glucose (UA) Urine Ketones Urine Blood Urine Nitrite Ur Leukocyte Esterase Urine WBC (Auto) Urine RBC (Auto) 10/22/17 10/22/17 10/23/17 19:40 19:40 01:30 Creatine Kinase 86 75 CK-MB (CK-2) 0.60 10/23/17 10/23/17 10/23/17 01:30 07:10 07:10 Creatine Kinase 84 CK-MB (CK-2) 0.58 0.58 Assessment & Plan - Diagnosis (1) Diabetic hyperosmolar non-ketotic state Is this a current diagnosis for this admission?: Yes (2) Acute kidney injury Is this a current diagnosis for this admission?: Yes (3) Parkinson disease Is this a current diagnosis for this admission?: Yes - Plan Summary Plan Summary: Continue treatment
[2017-10-23 20:16] LABS: BLOOD UREA NITROGEN 29 mg/dL (7-20); CALCIUM 8.3 mg/dL (8.4-10.2); GLUCOSE 115 mg/dL (75-110); POTASSIUM 4.5 mmol/L (3.6-5.0)
[2017-10-23 20:21] LABS: ANION GAP 7 (5-19); CARBON DIOXIDE 26 mmol/L (22-30); CHLORIDE 104 mmol/L (98-107); SODIUM 136.7 mmol/L (137-145)
[2017-10-23] MEDS: ATORVASTATIN CALCIUM 40 MG TABLET PO SCH (21:23)
[2017-10-23] MEDS: TRAZODONE HCL 50 MG TABLET PO SCH (21:23)
[2017-10-23] MEDS: INSULIN GLARGINE,HUM.REC.ANLOG 300 UNIT/3 ML INSULN.PEN SUBCUT SCH (21:23)
[2017-10-24 00:58] LABS: BLOOD UREA NITROGEN 31 mg/dL (7-20); CALCIUM 8.1 mg/dL (8.4-10.2); GLUCOSE 139 mg/dL (75-110); POTASSIUM 4.4 mmol/L (3.6-5.0)
[2017-10-24 01:03] LABS: CARBON DIOXIDE 26 mmol/L (22-30); CHLORIDE 107 mmol/L (98-107); SODIUM 136.1 mmol/L (137-145)
[2017-10-24 01:07] LABS: ANION GAP 3 (5-19)
[2017-10-24] MEDS: NORMAL SALINE 1000 ML 1,000 ML IV PRN ×2 (02:21→08:26)
[2017-10-24 05:30] LABS: ABSOLUTE EOSINOPHILS # (AUTO) 0.2 10^3/uL (0.0-0.6); ABSOLUTE LYMPHOCYTES (AUTO) 3.1 10^3/uL (0.5-4.7); ABSOLUTE MONOCYTES (AUTO) 0.4 10^3/uL (0.1-1.4); ABSOLUTE NEUT (AUTO) 1.6 10^3/uL (1.7-8.2); BASOPHILS % (AUTO) 0.9 % (0-2); EOSINOPHILS % (AUTO) 3.3 % (0-6); HEMATOCRIT 30.8 % (36.0-47.0); MEAN CORPUSCULAR HEMOGLOBIN 31.7 pg (27.0-33.4); MEAN CORPUSCULAR HGB CONC 35.8 g/dL (32.0-36.0); MEAN CORPUSCULAR VOLUME 88 fl (80-97); MONOCYTES % (AUTO) 7.5 % (3-13); PLATELET COUNT 161 10^3/uL (150-450); RED BLOOD COUNT 3.49 10^6/uL (3.72-5.28); RED CELL DISTRIBUTION WIDTH 12.2 % (11.5-14.0); SEGMENTED NEUTROPHILS % (AUTO) 30.3 % (42-78); TOTAL CELLS COUNTED % (AUTO) 100 %; WHITE BLOOD COUNT 5.3 10^3/uL (4.0-10.5)
[2017-10-24 05:48] LABS: ANION GAP 6 (5-19); BLOOD UREA NITROGEN 29 mg/dL (7-20); CALCIUM 8.3 mg/dL (8.4-10.2); CARBON DIOXIDE 26 mmol/L (22-30); CHLORIDE 110 mmol/L (98-107); GLUCOSE 169 mg/dL (75-110); POTASSIUM 4.5 mmol/L (3.6-5.0); SODIUM 141.8 mmol/L (137-145)
[2017-10-24] MEDS: CARBIDOPA/LEVODOPA 25-100 MG TABLET PO SCH ×3 (06:21→21:57)
[2017-10-24] MEDS: HEPARIN SOD (PORCINE) 5,000 UNIT/ML 1 ML SYRINGE SUBCUT SCH ×3 (06:21→21:47)
[2017-10-24] MEDS: INSULIN LISPRO 100 UNIT/ML 3 ML VIAL SUBCUT PRN ×3 (08:26→17:27)
[2017-10-24] MEDS: LISINOPRIL 10 MG TABLET PO SCH (09:32)
[2017-10-24] MEDS: METFORMIN HCL 500 MG TABLET PO SCH ×2 (09:33→17:27)
[2017-10-24] MEDS: ESCITALOPRAM OXALATE 10 MG TABLET PO SCH (09:33)
[2017-10-24] MEDS: LURASIDONE HCL 40 MG TABLET PO SCH (09:33)
[2017-10-24 10:05] LABS: ANION GAP 7 (5-19); BLOOD UREA NITROGEN 24 mg/dL (7-20); CALCIUM 8.4 mg/dL (8.4-10.2); CARBON DIOXIDE 24 mmol/L (22-30); CHLORIDE 109 mmol/L (98-107); GLUCOSE 241 mg/dL (75-110); POTASSIUM 4.7 mmol/L (3.6-5.0); SODIUM 139.5 mmol/L (137-145)
--- NOTE | 2017-10-24 11:51 | PDOC PROGRESS REPORT ---
Subjective Progress Note for:: 10/24/17 Subjective:: Patient admitting both of diabetic hyperosmolar ketoacidosis was on insulin drip currently off Is currently doing well Denied any chest pain denied any shortness of the breath Complains some constipations Reason For Visit: HYPEROSMOLAR NONKETOTIC DIABETES MELLITUS Physical Exam Vital Signs: Temp Pulse Resp BP Pulse Ox 98.7 F 63 14 166/64 H 97 10/24/17 08:21 10/24/17 08:21 10/24/17 08:21 10/24/17 08:21 10/24/17 08:21 Intake & Output 10/23/17 10/24/17 10/25/17 06:59 06:59 06:59 Intake Total 400 3018 2115 Output Total 650 Balance -250 3018 2115 Weight 81.4 kg 87.6 kg General appearance: PRESENT: no acute distress, well-developed, well-nourished Head exam: PRESENT: atraumatic, normocephalic Eye exam: PRESENT: conjunctiva pink, EOMI, PERRLA. ABSENT: scleral icterus Ear exam: PRESENT: normal external ear exam Mouth exam: PRESENT: moist, tongue midline Neck exam: PRESENT: full ROM. ABSENT: carotid bruit, JVD, lymphadenopathy, thyromegaly Respiratory exam: PRESENT: clear to auscultation tiffany Cardiovascular exam: PRESENT: RRR. ABSENT: diastolic murmur, rubs, systolic murmur Pulses: PRESENT: normal dorsalis pedis pul, +2 pedal pulses bilateral Vascular exam: PRESENT: normal capillary refill GI/Abdominal exam: PRESENT: normal bowel sounds, soft. ABSENT: distended, guarding, mass, organolmegaly, rebound, tenderness Rectal exam: PRESENT: deferred Extremities exam: ABSENT: pedal edema Neurological exam: PRESENT: alert, awake, oriented to person, oriented to place , oriented to time, oriented to situation, CN II-XII grossly intact. ABSENT: motor sensory deficit Additional comments: Patient of a Parkinson's tremor Psychiatric exam: PRESENT: appropriate affect, normal mood. ABSENT: homicidal ideation, suicidal ideation Skin exam: PRESENT: dry, intact, warm. ABSENT: cyanosis, rash Results Laboratory Results: 10/24/17 04:25 10/24/17 09:00 10/23/17 10/23/17 10/23/17 11:21 15:55 19:50 WBC RBC Hgb Hct MCV MCH MCHC RDW Plt Count Seg Neutrophils % Lymphocytes % Monocytes % Eosinophils % Basophils % Absolute Neutrophils Absolute Lymphocytes Absolute Monocytes Absolute Eosinophils Absolute Basophils Sodium 139.7 137.4 136.7 L Potassium 4.3 4.4 4.5 Chloride 105 104 104 Carbon Dioxide 25 28 26 Anion Gap 10 5 7 BUN 28 H 29 H 29 H Creatinine 0.91 1.05 1.07 Est GFR ( Amer) > 60 > 60 > 60 Est GFR (Non-Af Amer) > 60 54 L 52 L Glucose 118 H 118 H 115 H Calcium 8.3 L 8.3 L 8.3 L 10/24/17 10/24/17 10/24/17 00:21 04:25 04:25 WBC 5.3 RBC 3.49 L Hgb 11.0 L Hct 30.8 L MCV 88 MCH 31.7 MCHC 35.8 RDW 12.2 Plt Count 161 Seg Neutrophils % 30.3 L Lymphocytes % 58.0 H Monocytes % 7.5 Eosinophils % 3.3 Basophils % 0.9 Absolute Neutrophils 1.6 L Absolute Lymphocytes 3.1 Absolute Monocytes 0.4 Absolute Eosinophils 0.2 Absolute Basophils 0.0 Sodium 136.1 L 141.8 Potassium 4.4 4.5 Chloride 107 110 H Carbon Dioxide 26 26 Anion Gap 3 L 6 BUN 31 H 29 H Creatinine 0.91 0.98 Est GFR ( Amer) > 60 > 60 Est GFR (Non-Af Amer) > 60 58 L Glucose 139 H 169 H Calcium 8.1 L 8.3 L 10/24/17 09:00 WBC RBC Hgb Hct MCV MCH MCHC RDW Plt Count Seg Neutrophils % Lymphocytes % Monocytes % Eosinophils % Basophils % Absolute Neutrophils Absolute Lymphocytes Absolute Monocytes Absolute Eosinophils Absolute Basophils Sodium 139.5 Potassium 4.7 Chloride 109 H Carbon Dioxide 24 Anion Gap 7 BUN 24 H Creatinine 0.80 Est GFR ( Amer) > 60 Est GFR (Non-Af Amer) > 60 Glucose 241 H Calcium 8.4 10/23/17 03:00 Clean Catch Midstream Urine Culture - Final Mixed Urogenital Rubina 10/22/17 10/22/17 10/23/17 19:40 19:40 01:30 Creatine Kinase 86 75 CK-MB (CK-2) 0.60 10/23/17 10/23/17 10/23/17 01:30 07:10 07:10 Creatine Kinase 84 CK-MB (CK-2) 0.58 0.58 Assessment & Plan - Diagnosis (1) Acute kidney injury Is this a current diagnosis for this admission?: Yes Plan: Currently all resolving (2) Diabetic hyperosmolar non-ketotic state Is this a current diagnosis for this admission?: Yes Plan: Continues to current medications diabetic educations (3) Parkinson disease Is this a current diagnosis for this admission?: Yes Plan: continue to current medications (4) Hypertension Qualifiers: Hypertension type: essential hypertension Qualified Code(s): I10 - Essential (primary) hypertension Is this a current diagnosis for this admission?: Yes Plan: The IV fluid and adjust the lisinopril - Time Time Spent with patient: 15-24 minutes Medications reviewed and adjusted accordingly: Yes Anticipated discharge: Other Within: Other - Inpatient Certification Medical Necessity: Need Close Monitoring Due to Risk of Patient Decompensation Post Hospital Care: D/C Relief Docking Master Documentation - Plan Summary Plan Summary: cont curr med
[2017-10-24] MEDS ORDERED: FLUTICASONE NASAL SPRAY 50 MCG/SPRY 120 SPRAY/16 GM NASL ONE (13:00)
[2017-10-24] MEDS ORDERED: AMLODIPINE BESYLATE 2.5 MG TABLET PO ONE (13:00)
[2017-10-24] MEDS ORDERED: POLYETHYLENE GLYCOL 3350 POWDER 17 GM/1 PACKET PO ONE (13:00)
[2017-10-24 13:25] LABS: ANION GAP 7 (5-19); BLOOD UREA NITROGEN 24 mg/dL (7-20); CALCIUM 8.4 mg/dL (8.4-10.2); CARBON DIOXIDE 21 mmol/L (22-30); CHLORIDE 109 mmol/L (98-107); GLUCOSE 285 mg/dL (75-110); POTASSIUM 4.9 mmol/L (3.6-5.0); SODIUM 136.7 mmol/L (137-145)
[2017-10-24] MEDS: DOCUSATE SODIUM 100 MG CAPSULE PO SCH (17:28)
[2017-10-24 18:20] LABS: ANION GAP 7 (5-19); BLOOD UREA NITROGEN 26 mg/dL (7-20); CALCIUM 8.4 mg/dL (8.4-10.2); CARBON DIOXIDE 24 mmol/L (22-30); CHLORIDE 107 mmol/L (98-107); GLUCOSE 169 mg/dL (75-110); POTASSIUM 5.2 mmol/L (3.6-5.0); SODIUM 137.8 mmol/L (137-145)
[2017-10-24] MEDS: TRAZODONE HCL 50 MG TABLET PO SCH (21:44)
[2017-10-24] MEDS: ATORVASTATIN CALCIUM 40 MG TABLET PO SCH (21:45)
[2017-10-24] MEDS: AMLODIPINE BESYLATE 2.5 MG TABLET PO SCH (21:45)
[2017-10-24] MEDS: INSULIN GLARGINE,HUM.REC.ANLOG 300 UNIT/3 ML INSULN.PEN SUBCUT SCH (21:48)
[2017-10-24] MEDS: FLUTICASONE NASAL SPRAY 50 MCG/SPRY 120 SPRAY/16 GM NASL SCH (21:49)
[2017-10-24 22:04] LABS: ANION GAP 5 (5-19); BLOOD UREA NITROGEN 27 mg/dL (7-20); CALCIUM 8.4 mg/dL (8.4-10.2); CARBON DIOXIDE 26 mmol/L (22-30); CHLORIDE 105 mmol/L (98-107); GLUCOSE 205 mg/dL (75-110); POTASSIUM 5.1 mmol/L (3.6-5.0)
[2017-10-25 01:00] LABS: BLOOD UREA NITROGEN 31 mg/dL (7-20); CALCIUM 8.4 mg/dL (8.4-10.2); CARBON DIOXIDE 26 mmol/L (22-30); CHLORIDE 106 mmol/L (98-107); GLUCOSE 257 mg/dL (75-110); POTASSIUM 5.1 mmol/L (3.6-5.0); SODIUM 135.5 mmol/L (137-145)
[2017-10-25 01:05] LABS: ANION GAP 4 (5-19)
[2017-10-25 05:14] LABS: BLOOD UREA NITROGEN 32 mg/dL (7-20); CALCIUM 8.8 mg/dL (8.4-10.2); GLUCOSE 259 mg/dL (75-110)
[2017-10-25 05:15] LABS: ANION GAP 5 (5-19); CARBON DIOXIDE 24 mmol/L (22-30); CHLORIDE 109 mmol/L (98-107); POTASSIUM 4.8 mmol/L (3.6-5.0); SODIUM 138.1 mmol/L (137-145)
[2017-10-25] MEDS: CARBIDOPA/LEVODOPA 25-100 MG TABLET PO SCH ×3 (05:33→22:00)
[2017-10-25 07:56] LABS: HEMATOCRIT 29.6 % (36.0-47.0); HEMOGLOBIN 10.6 g/dL (12.0-15.5); MEAN CORPUSCULAR HEMOGLOBIN 31.5 pg (27.0-33.4); MEAN CORPUSCULAR HGB CONC 35.7 g/dL (32.0-36.0); MEAN CORPUSCULAR VOLUME 88 fl (80-97); PLATELET COUNT 157 10^3/uL (150-450); RED BLOOD COUNT 3.36 10^6/uL (3.72-5.28); RED CELL DISTRIBUTION WIDTH 12.3 % (11.5-14.0); WHITE BLOOD COUNT 4.5 10^3/uL (4.0-10.5)
[2017-10-25] MEDS: INSULIN LISPRO 100 UNIT/ML 3 ML VIAL SUBCUT PRN ×4 (08:11→22:00)
[2017-10-25 08:44] LABS: ABSOLUTE LYMPHOCYTES# (MANUAL) 2.7 10^3/uL (0.5-4.7); ABSOLUTE MONOCYTES # (MANUAL) 0.3 10^3/uL (0.1-1.4); ABSOLUTE NEUTROPHILS# (MANUAL) 1.2 10^3/uL (1.7-8.2); BASOPHILS % (MANUAL) 2 % (0-2); EOSINOPHILS % (MANUAL) 4 % (0-6); LYMPHOCYTES % (MANUAL) 61 % (13-45); MONOCYTES % (MANUAL) 6 % (3-13); SEGMENTED NEUTROPHILS % (MAN) 27 % (42-78); TOTAL CELLS COUNTED 100
[2017-10-25 08:45] LABS: PLATELET COMMENT ADEQUATE; RBC MORPHOLOGY COMMENT NORMO-CYTIC/CHROMIC
[2017-10-25] MEDS: HEPARIN SOD (PORCINE) 5,000 UNIT/ML 1 ML SYRINGE SUBCUT SCH ×3 (08:46→22:00)
[2017-10-25] MEDS: POLYETHYLENE GLYCOL 3350 POWDER 17 GM/1 PACKET PO SCH (09:04)
[2017-10-25] MEDS: FLUTICASONE NASAL SPRAY 50 MCG/SPRY 120 SPRAY/16 GM NASL SCH ×2 (09:06→22:00)
[2017-10-25] MEDS: LURASIDONE HCL 40 MG TABLET PO SCH (09:07)
[2017-10-25] MEDS: LISINOPRIL 10 MG TABLET PO SCH (09:09)
[2017-10-25] MEDS: ESCITALOPRAM OXALATE 10 MG TABLET PO SCH (09:11)
[2017-10-25] MEDS: DOCUSATE SODIUM 100 MG CAPSULE PO SCH ×2 (09:12→17:13)
[2017-10-25] MEDS: AMLODIPINE BESYLATE 2.5 MG TABLET PO SCH ×2 (09:13→21:59)
[2017-10-25] MEDS: METFORMIN HCL 500 MG TABLET PO SCH ×2 (09:13→17:13)
[2017-10-25 09:57] LABS: ANION GAP 8 (5-19); BLOOD UREA NITROGEN 31 mg/dL (7-20); CARBON DIOXIDE 26 mmol/L (22-30); CHLORIDE 105 mmol/L (98-107); GLUCOSE 283 mg/dL (75-110); POTASSIUM 4.7 mmol/L (3.6-5.0); SODIUM 138.5 mmol/L (137-145)
--- NOTE | 2017-10-25 10:34 | PDOC PROGRESS REPORT ---
Subjective Progress Note for:: 10/25/17 Subjective:: Patient admitting both of diabetic hyperosmolar ketoacidosis was on insulin drip currently off Is currently doing well Denied any chest pain denied any shortness of the breath Complains some constipations Reason For Visit: HYPEROSMOLAR NONKETOTIC DIABETES MELLITUS Physical Exam Vital Signs: Temp Pulse Resp BP Pulse Ox 98.3 F 61 16 137/64 H 97 10/25/17 07:39 10/25/17 07:39 10/25/17 07:39 10/25/17 07:39 10/25/17 07:39 Intake & Output 10/24/17 10/25/17 10/26/17 06:59 06:59 06:59 Intake Total 3018 3109 Output Total 4 Balance 3018 3105 Weight 87.6 kg 88.4 kg General appearance: PRESENT: no acute distress, well-developed, well-nourished Head exam: PRESENT: atraumatic, normocephalic Eye exam: PRESENT: conjunctiva pink, EOMI, PERRLA. ABSENT: scleral icterus Ear exam: PRESENT: normal external ear exam Mouth exam: PRESENT: moist, tongue midline Neck exam: PRESENT: full ROM. ABSENT: carotid bruit, JVD, lymphadenopathy, thyromegaly Respiratory exam: PRESENT: clear to auscultation tiffany Cardiovascular exam: PRESENT: RRR. ABSENT: diastolic murmur, rubs, systolic murmur Pulses: PRESENT: normal dorsalis pedis pul, +2 pedal pulses bilateral Vascular exam: PRESENT: normal capillary refill GI/Abdominal exam: PRESENT: normal bowel sounds, soft. ABSENT: distended, guarding, mass, organolmegaly, rebound, tenderness Rectal exam: PRESENT: deferred Extremities exam: ABSENT: pedal edema Neurological exam: PRESENT: alert, awake, oriented to person, oriented to place , oriented to time, oriented to situation, CN II-XII grossly intact. ABSENT: motor sensory deficit Psychiatric exam: PRESENT: appropriate affect, normal mood. ABSENT: homicidal ideation, suicidal ideation Skin exam: PRESENT: dry, intact, warm. ABSENT: cyanosis, rash Results Laboratory Results: 10/25/17 04:34 10/25/17 08:50 10/24/17 10/24/17 10/24/17 12:48 16:52 20:30 WBC RBC Hgb Hct MCV MCH MCHC RDW Plt Count Seg Neutrophils % Lymphocytes % Monocytes % Eosinophils % Basophils % Absolute Neutrophils Absolute Lymphocytes Absolute Monocytes Absolute Eosinophils Absolute Basophils Sodium 136.7 L 137.8 136.0 L Potassium 4.9 5.2 H 5.1 H Chloride 109 H 107 105 Carbon Dioxide 21 L 24 26 Anion Gap 7 7 5 BUN 24 H 26 H 27 H Creatinine 0.76 1.06 1.16 Est GFR ( Amer) > 60 > 60 58 L Est GFR (Non-Af Amer) > 60 53 L 48 L Glucose 285 H 169 H 205 H Calcium 8.4 8.4 8.4 10/25/17 10/25/17 10/25/17 00:30 04:34 04:34 WBC 4.5 RBC 3.36 L Hgb 10.6 L Hct 29.6 L MCV 88 MCH 31.5 MCHC 35.7 RDW 12.3 Plt Count 157 Seg Neutrophils % Not Reportable Lymphocytes % Not Reportable Monocytes % Not Reportable Eosinophils % Not Reportable Basophils % Not Reportable Absolute Neutrophils Not Reportable Absolute Lymphocytes Not Reportable Absolute Monocytes Not Reportable Absolute Eosinophils Not Reportable Absolute Basophils Not Reportable Sodium 135.5 L 138.1 Potassium 5.1 H 4.8 Chloride 106 109 H Carbon Dioxide 26 24 Anion Gap 4 L 5 BUN 31 H 32 H Creatinine 0.92 0.95 Est GFR ( Amer) > 60 > 60 Est GFR (Non-Af Amer) > 60 > 60 Glucose 257 H 259 H Calcium 8.4 8.8 10/25/17 08:50 WBC RBC Hgb Hct MCV MCH MCHC RDW Plt Count Seg Neutrophils % Lymphocytes % Monocytes % Eosinophils % Basophils % Absolute Neutrophils Absolute Lymphocytes Absolute Monocytes Absolute Eosinophils Absolute Basophils Sodium 138.5 Potassium 4.7 Chloride 105 Carbon Dioxide 26 Anion Gap 8 BUN 31 H Creatinine 0.84 Est GFR ( Amer) > 60 Est GFR (Non-Af Amer) > 60 Glucose 283 H Calcium 9.0 10/23/17 03:00 Clean Catch Midstream Urine Culture - Final Mixed Urogenital Rubina 10/22/17 10/22/17 10/23/17 19:40 19:40 01:30 Creatine Kinase 86 75 CK-MB (CK-2) 0.60 10/23/17 10/23/17 10/23/17 01:30 07:10 07:10 Creatine Kinase 84 CK-MB (CK-2) 0.58 0.58 Assessment & Plan - Diagnosis (1) Acute kidney injury Is this a current diagnosis for this admission?: Yes Plan: Currently all resolving (2) Diabetic hyperosmolar non-ketotic state Is this a current diagnosis for this admission?: Yes Plan: Continues to current medications diabetic educations (3) Parkinson disease Is this a current diagnosis for this admission?: Yes (4) Hypertension Qualifiers: Hypertension type: essential hypertension Qualified Code(s): I10 - Essential (primary) hypertension Is this a current diagnosis for this admission?: Yes Plan: The IV fluid and adjust the lisinopril - Time Time Spent with patient: 15-24 minutes Medications reviewed and adjusted accordingly: Yes Anticipated discharge: Other Within: Other - Inpatient Certification Medical Necessity: Need Close Monitoring Due to Risk of Patient Decompensation Post Hospital Care: D/C Cloth Trimmer Hand Documentation - Plan Summary Plan Summary: current medications
[2017-10-25] MEDS ORDERED: INSULIN GLARGINE,HUM.REC.ANLOG 1,000 UNIT/10 ML UNIT SUBCUT ONE (12:00)
[2017-10-25 13:09] LABS: ANION GAP 5 (5-19); BLOOD UREA NITROGEN 30 mg/dL (7-20); CALCIUM 9.1 mg/dL (8.4-10.2); CARBON DIOXIDE 29 mmol/L (22-30); CHLORIDE 104 mmol/L (98-107); GLUCOSE 273 mg/dL (75-110); POTASSIUM 4.7 mmol/L (3.6-5.0); SODIUM 138.3 mmol/L (137-145)
[2017-10-25 16:41] LABS: ANION GAP 5 (5-19); BLOOD UREA NITROGEN 29 mg/dL (7-20); CALCIUM 8.8 mg/dL (8.4-10.2); CARBON DIOXIDE 26 mmol/L (22-30); CHLORIDE 104 mmol/L (98-107); GLUCOSE 172 mg/dL (75-110); POTASSIUM 4.8 mmol/L (3.6-5.0); SODIUM 135.1 mmol/L (137-145)
[2017-10-25 20:56] LABS: ANION GAP 8 (5-19); BLOOD UREA NITROGEN 29 mg/dL (7-20); CALCIUM 8.9 mg/dL (8.4-10.2); CARBON DIOXIDE 26 mmol/L (22-30); CHLORIDE 103 mmol/L (98-107); GLUCOSE 220 mg/dL (75-110); POTASSIUM 4.6 mmol/L (3.6-5.0); SODIUM 136.5 mmol/L (137-145)
[2017-10-25] MEDS: ATORVASTATIN CALCIUM 40 MG TABLET PO SCH (21:59)
[2017-10-25] MEDS: TRAZODONE HCL 50 MG TABLET PO SCH (22:00)
[2017-10-25] MEDS: INSULIN GLARGINE,HUM.REC.ANLOG 300 UNIT/3 ML INSULN.PEN SUBCUT SCH (22:00)
[2017-10-26 00:50] LABS: ANION GAP 7 (5-19); BLOOD UREA NITROGEN 30 mg/dL (7-20); CALCIUM 8.6 mg/dL (8.4-10.2); CARBON DIOXIDE 25 mmol/L (22-30); CHLORIDE 103 mmol/L (98-107); GLUCOSE 257 mg/dL (75-110); POTASSIUM 4.4 mmol/L (3.6-5.0); SODIUM 135.2 mmol/L (137-145)
[2017-10-26 06:01] LABS: ANION GAP 9 (5-19); BLOOD UREA NITROGEN 31 mg/dL (7-20); CALCIUM 8.8 mg/dL (8.4-10.2); CARBON DIOXIDE 22 mmol/L (22-30); CHLORIDE 106 mmol/L (98-107); GLUCOSE 254 mg/dL (75-110); POTASSIUM 4.5 mmol/L (3.6-5.0); SODIUM 137.4 mmol/L (137-145)
[2017-10-26] MEDS: HEPARIN SOD (PORCINE) 5,000 UNIT/ML 1 ML SYRINGE SUBCUT SCH ×3 (06:11→21:58)
[2017-10-26] MEDS: CARBIDOPA/LEVODOPA 25-100 MG TABLET PO SCH ×3 (06:11→21:57)
[2017-10-26 09:20] LABS: ANION GAP 8 (5-19); BLOOD UREA NITROGEN 30 mg/dL (7-20); CALCIUM 9.1 mg/dL (8.4-10.2); CARBON DIOXIDE 27 mmol/L (22-30); CHLORIDE 105 mmol/L (98-107); GLUCOSE 194 mg/dL (75-110); POTASSIUM 4.4 mmol/L (3.6-5.0); SODIUM 139.7 mmol/L (137-145)
[2017-10-26] MEDS: LISINOPRIL 10 MG TABLET PO SCH (09:51)
[2017-10-26] MEDS: FLUTICASONE NASAL SPRAY 50 MCG/SPRY 120 SPRAY/16 GM NASL SCH ×2 (09:51→21:58)
[2017-10-26] MEDS: METFORMIN HCL 500 MG TABLET PO SCH ×2 (09:51→16:21)
[2017-10-26] MEDS: INSULIN LISPRO 100 UNIT/ML 3 ML VIAL SUBCUT PRN ×3 (09:51→21:58)
[2017-10-26] MEDS: LURASIDONE HCL 40 MG TABLET PO SCH (09:51)
[2017-10-26] MEDS: POLYETHYLENE GLYCOL 3350 POWDER 17 GM/1 PACKET PO SCH (09:51)
[2017-10-26] MEDS: AMLODIPINE BESYLATE 2.5 MG TABLET PO SCH ×2 (09:51→21:57)
[2017-10-26] MEDS: DOCUSATE SODIUM 100 MG CAPSULE PO SCH ×2 (09:51→19:29)
[2017-10-26] MEDS: ESCITALOPRAM OXALATE 10 MG TABLET PO SCH (09:51)
[2017-10-26 13:57] LABS: ANION GAP 7 (5-19); BLOOD UREA NITROGEN 28 mg/dL (7-20); CALCIUM 8.9 mg/dL (8.4-10.2); CARBON DIOXIDE 26 mmol/L (22-30); CHLORIDE 103 mmol/L (98-107); GLUCOSE 241 mg/dL (75-110); POTASSIUM 4.7 mmol/L (3.6-5.0); SODIUM 136.4 mmol/L (137-145)
[2017-10-26 17:49] LABS: ANION GAP 5 (5-19); BLOOD UREA NITROGEN 31 mg/dL (7-20); CALCIUM 8.7 mg/dL (8.4-10.2); CARBON DIOXIDE 25 mmol/L (22-30); CHLORIDE 106 mmol/L (98-107); GLUCOSE 156 mg/dL (75-110); POTASSIUM 5.3 mmol/L (3.6-5.0); SODIUM 136.2 mmol/L (137-145)
--- NOTE | 2017-10-26 20:05 | PDOC DISCHARGE SUMMARY ---
General - Admit/Disc Date/PCP Admission Date/Primary Care Provider: 10/22/17 18:55 COLLIN MENJIVAR MD Discharge Date: 10/26/17 - Discharge Diagnosis (1) Diabetic hyperosmolar non-ketotic state Is this a current diagnosis for this admission?: Yes (2) Acute kidney injury Is this a current diagnosis for this admission?: Yes (3) Parkinson disease Is this a current diagnosis for this admission?: Yes - Additional Information Resuscitation Status: Full Code Prescriptions: Insulin Glargine,Hum.rec.anlog [Lantus Insulin 100 Unit/mL] 30 unit SUBCUT QHS # 2 insuln.pen Amlodipine Besylate [Norvasc 2.5 mg Tablet] 5 mg PO DAILY #90 tablet Metformin HCl [Glucophage 500 mg Tablet] 1,000 mg PO BIDBS #180 tablet Home Medications: Atorvastatin Calcium [Lipitor 40 mg Tablet] 40 mg PO QHS 07/03/16 Lisinopril [Prinivil] 20 mg PO DAILY 07/03/16 Carbidopa/Levodopa [Sinemet 25-100 mg Tablet] 1 each PO Q8 10/22/17 Dapagliflozin Propanediol [Farxiga] 10 mg PO DAILY 10/22/17 Escitalopram Oxalate [Lexapro 10 mg Tablet] 15 mg PO DAILY 10/22/17 Lurasidone HCl [Latuda] 20 mg PO DAILY 10/22/17 Trazodone HCl [Desyrel 50 mg Tablet] 100 mg PO HSP PRN 10/22/17 Amlodipine Besylate [Norvasc 2.5 mg Tablet] 5 mg PO DAILY #90 tablet 10/26/17 Insulin Glargine,Hum.rec.anlog [Lantus Insulin 100 Unit/mL] 30 unit SUBCUT QHS # 2 insuln.pen 10/26/17 Metformin HCl [Glucophage 500 mg Tablet] 1,000 mg PO BIDBS #180 tablet 10/26/17 Polyethylene Glycol 3350 [Miralax Powder 17 gm/Packet] 17 gm PO DAILY powd.pack 10/26/17 History of Present Illness History of Present Illness: JUN BOSS is a 57 year old female, She has a history of type 2 diabetes mellitus, she was relatively well controlled on Metformin and farxiga ,she came to the emergency room for evaluation of, polyuria, polydipsia, frequency of urination, she thought she had a UTI ,in the emergency room she was evaluated the serum glucose was 670, she was showing signs of hyperosmolar, nonketotic state. Because of the hyperosmolar nonketotic hyperglycemic state the emergency room physician felt patient needed to be admitted to the hospital for management. Hospital Course Hospital Course: Patient was admitted for the management of hyperosmolar nonketotic diabetes mellitus, she was treated with insulin drip, normal saline, the medication was adjusted, the precipitating factor was not known there was no documented infection, she is also on psychotropic drugs,, she has a history of Parkinson disease, the psychotropic drugs have the potential to exacerbate diabetes or cause diabetes Physical Exam Vital Signs: Temp Pulse Resp BP Pulse Ox 98.7 F 69 18 134/60 H 98 10/26/17 15:26 10/26/17 15:26 10/26/17 15:26 10/26/17 15:26 10/26/17 15:26 Intake & Output 10/25/17 10/26/17 10/27/17 06:59 06:59 06:59 Intake Total 3109 1735 621 Output Total 4 Balance 3105 1735 621 Weight 88.4 kg 88.4 kg General appearance: PRESENT: no acute distress, well-developed, well-nourished Head exam: PRESENT: atraumatic, normocephalic Eye exam: PRESENT: conjunctiva pink, EOMI, PERRLA Ear exam: PRESENT: normal external ear exam Mouth exam: PRESENT: moist, tongue midline Neck exam: PRESENT: full ROM Respiratory exam: PRESENT: clear to auscultation tiffany Cardiovascular exam: PRESENT: RRR, +S1, +S2 Pulses: PRESENT: normal dorsalis pedis pul, +2 pedal pulses bilateral Vascular exam: PRESENT: normal capillary refill GI/Abdominal exam: PRESENT: normal bowel sounds, soft Rectal exam: PRESENT: deferred Neurological exam: PRESENT: alert, awake, oriented to person, oriented to place , oriented to time, oriented to situation, CN II-XII grossly intact Psychiatric exam: PRESENT: appropriate affect, normal mood Skin exam: PRESENT: dry, intact, warm Results Laboratory Results: 10/25/17 04:34 10/26/17 16:45 10/25/17 10/26/17 10/26/17 20:30 00:26 04:19 Sodium 136.5 L 135.2 L 137.4 Potassium 4.6 4.4 4.5 Chloride 103 103 106 Carbon Dioxide 26 25 22 Anion Gap 8 7 9 BUN 29 H 30 H 31 H Creatinine 0.84 0.97 0.91 Est GFR ( Amer) > 60 > 60 > 60 Est GFR (Non-Af Amer) > 60 59 L > 60 Glucose 220 H 257 H 254 H Calcium 8.9 8.6 8.8 10/26/17 10/26/17 10/26/17 08:30 12:52 16:45 Sodium 139.7 136.4 L 136.2 L Potassium 4.4 4.7 5.3 H Chloride 105 103 106 Carbon Dioxide 27 26 25 Anion Gap 8 7 5 BUN 30 H 28 H 31 H Creatinine 1.02 1.02 1.07 Est GFR ( Amer) > 60 > 60 > 60 Est GFR (Non-Af Amer) 55 L 55 L 52 L Glucose 194 H 241 H 156 H Calcium 9.1 8.9 8.7 10/22/17 10/22/17 10/23/17 19:40 19:40 01:30 Creatine Kinase 86 75 CK-MB (CK-2) 0.60 10/23/17 10/23/17 10/23/17 01:30 07:10 07:10 Creatine Kinase 84 CK-MB (CK-2) 0.58 0.58 Qualifiers - * PATIENT BEING DISCHARGED WITH ANY OF THE FOLLOWING DIAGNOSIS: No
[2017-10-26 21:22] LABS: ANION GAP 7 (5-19); BLOOD UREA NITROGEN 37 mg/dL (7-20); CARBON DIOXIDE 25 mmol/L (22-30); CHLORIDE 103 mmol/L (98-107); GLUCOSE 210 mg/dL (75-110); POTASSIUM 5.6 mmol/L (3.6-5.0)
[2017-10-26] MEDS: ATORVASTATIN CALCIUM 40 MG TABLET PO SCH (21:57)
[2017-10-26] MEDS: TRAZODONE HCL 50 MG TABLET PO SCH (21:57)
[2017-10-26] MEDS: INSULIN GLARGINE,HUM.REC.ANLOG 300 UNIT/3 ML INSULN.PEN SUBCUT SCH (21:58)
[2017-10-27 03:05] LABS: CALCIUM 9.1 mg/dL (8.4-10.2)
[2017-10-27 03:06] LABS: ANION GAP 8 (5-19); BLOOD UREA NITROGEN 40 mg/dL (7-20); CARBON DIOXIDE 24 mmol/L (22-30); CHLORIDE 108 mmol/L (98-107); GLUCOSE 215 mg/dL (75-110); POTASSIUM 5.2 mmol/L (3.6-5.0); SODIUM 139.5 mmol/L (137-145)
[2017-10-27 05:16] LABS: ANION GAP 7 (5-19); BLOOD UREA NITROGEN 39 mg/dL (7-20); CALCIUM 8.9 mg/dL (8.4-10.2); CARBON DIOXIDE 26 mmol/L (22-30); CHLORIDE 105 mmol/L (98-107); GLUCOSE 174 mg/dL (75-110); POTASSIUM 4.7 mmol/L (3.6-5.0)
[2017-10-27] MEDS: HEPARIN SOD (PORCINE) 5,000 UNIT/ML 1 ML SYRINGE SUBCUT SCH (05:48)
[2017-10-27] MEDS: CARBIDOPA/LEVODOPA 25-100 MG TABLET PO SCH (05:48)
[2017-10-27] MEDS: INSULIN LISPRO 100 UNIT/ML 3 ML VIAL SUBCUT PRN (07:41)
[2017-10-27] MEDS: METFORMIN HCL 500 MG TABLET PO SCH (07:41)
[2017-10-27 08:12] VITALS: BP 143/61
[2017-10-27] MEDS: ESCITALOPRAM OXALATE 10 MG TABLET PO SCH (09:55)
[2017-10-27] MEDS: AMLODIPINE BESYLATE 2.5 MG TABLET PO SCH (09:55)
[2017-10-27] MEDS: POLYETHYLENE GLYCOL 3350 POWDER 17 GM/1 PACKET PO SCH (09:55)
[2017-10-27] MEDS: DOCUSATE SODIUM 100 MG CAPSULE PO SCH (09:56)
[2017-10-27] MEDS: LISINOPRIL 10 MG TABLET PO SCH (09:56)
[2017-10-27] MEDS: LURASIDONE HCL 40 MG TABLET PO SCH (09:56)
[2017-10-27] MEDS: FLUTICASONE NASAL SPRAY 50 MCG/SPRY 120 SPRAY/16 GM NASL SCH (10:40)
== END 2017-10-27 10:45 | disposition home or self-care (01) | DRG 638 ==
LOC: ER 12:15 → EH 15:30 → INTOOBSV 15:30 → OBSVTOIN 15:30 → 5 18:32 → OBSVTOIN 18:55
PROVIDERS: ADMIT Internal Medicine; ATTEND Internal Medicine
DX: E11.00 Type 2 diabetes mellitus with hyperosmolarity without nonketotic hyperglycemic-hyperosmolar coma (NKHHC) (principal); N17.9 Acute kidney failure, unspecified; G20 Parkinson's disease; I10 Essential (primary) hypertension; F32.9 Major depressive disorder, single episode, unspecified; Z79.899 Other long term (current) drug therapy; Z79.4 Long term (current) use of insulin; Z79.84 Long term (current) use of oral hypoglycemic drugs; Z88.6 Allergy status to analgesic agent; Z88.0 Allergy status to penicillin
CPT/HCPCS: 36415; 80048; 80053; 80061; 80307; 81001; 82140; 82150; 82550; 82553; 82803; 82962; 83036; 83690; 83735; 84100; 84439; 84443; 85025; 85610; 85730; 87040; 87086; 96360; 99284; J1644; J1815; J3490; J7030

== ENCOUNTER 2018-02-09 12:26 | Emergency (ER) | payer SELFPAY ==
[2018-02-09] MEDS ORDERED: NORMAL SALINE 1000 ML 1,000 ML IV ONE (13:01)
--- NOTE | 2018-02-09 13:05 | ER Document Report ---
ED Medical Screen (RME) - General Chief Complaint: Headache Stated Complaint: BACK PAIN, HEADACHE Time Seen by Provider: 02/09/18 12:56 Notes: Patient is a 57-year-old female with Parkinson's disease, and diabetes mellitus that presents to the emergency department for chief complaint of 2 weeks of headache, and low back pain. Patient denies prior history of headaches, she is been taking Tylenol without improvement, she also has low back pain that seems to be worse with movements, denies any injuries. Denies any numbness, tingling or weakness in any extremity, nausea or vomiting or vision changes. ROS: Unless otherwise stated in this report the patient's positive and negative responses for review of systems for constitutional, eyes, ENT, cardiovascular, respiratory, gastrointestinal, neurological, genitourinary, musculoskeletal, and integumentary systems and related systems to the presenting problem are either as stated in the HPI or were not pertinent or were negative for the symptoms and/or complaints related to the presenting medical problem. PHYSICAL EXAMINATION: Vital signs reviewed. GENERAL: Well-appearing, well-nourished and in no acute distress. HEAD: Atraumatic, normocephalic. EYES: Pupils equal round extraocular movements intact, conjunctiva are normal. ENT: Nares patent tenderness with palpation of the sinuses NECK: Normal range of motion CV: Heart regular rate and rhythm LUNGS: No respiratory distress Musculoskeletal: Normal range of motion, tenderness to palpation of the paraspinal muscles of the lumbar spine NEUROLOGICAL: Normal speech PSYCH: Normal mood, normal affect. Patient started on IV fluids, will hold off on Reglan, given the patient's Parkinson's disease, this can worsen her symptoms, will hold off on Decadron as the patient has diabetes, will obtain CT of the head, before administering any Toradol, blood work ordered as well as urinalysis. MDM: Patient seen and examined for rapid initial assessment. Vital signs reviewed. A comprehensive ED assessment and evaluation of the patient, analysis of test results and completion of the medical decision making process will be conducted by additional ED providers. *Note is created using voice recognition software and may contain spelling, syntax or grammatical errors. TRAVEL OUTSIDE OF THE [place] IN LAST 30 DAYS: No - Related Data Allergies/Adverse Reactions: Penicillins Allergy (Verified 02/09/18 12:28) Swelling of Throat aspirin Adverse Reaction (Intermediate, Verified 02/09/18 12:28) Past Medical History - Social History Frequency of alcohol use: None Drug Abuse: None - Past Medical History Cardiac Medical History: Reports: Hx Hypertension Denies: Hx Heart Attack Pulmonary Medical History: Denies: Hx Asthma Neurological Medical History: Denies: Hx Cerebrovascular Accident, Hx Seizures Endocrine Medical History: Reports: Hx Diabetes Mellitus Type 2 Renal/ Medical History: Denies: Hx Peritoneal Dialysis GI Medical History: Denies: Hx Hepatitis, Hx Hiatal Hernia, Hx Ulcer Psychiatric Medical History: Reports: Hx Depression Infectious Medical History: Denies: Hx Hepatitis Past Surgical History: Denies: Hx Mastectomy, Hx Open Heart Surgery, Hx Pacemaker - Immunizations History of Influenza Vaccine for 01/2017 - 06/2017 Season: No Physical Exam - Vital signs Vitals: Temp Pulse Resp BP Pulse Ox 97.7 F 74 12 160/84 H 98 02/09/18 12:34 02/09/18 12:34 02/09/18 12:34 02/09/18 12:34 02/09/18 12:34 Course - Vital Signs Vital signs: Temp Pulse Resp BP Pulse Ox 97.7 F 74 12 160/84 H 98 02/09/18 12:34 02/09/18 12:34 02/09/18 12:34 02/09/18 12:34 02/09/18 12:34 Doctor's Discharge - Discharge Referrals: COLLIN MENJIVAR MD [Primary Care Provider] - Follow up as needed
[2018-02-09 13:52] LABS: ABSOLUTE EOSINOPHILS # (AUTO) 0.1 10^3/uL (0.0-0.6); ABSOLUTE LYMPHOCYTES (AUTO) 1.8 10^3/uL (0.5-4.7); ABSOLUTE MONOCYTES (AUTO) 0.3 10^3/uL (0.1-1.4); ABSOLUTE NEUT (AUTO) 1.5 10^3/uL (1.7-8.2); BASOPHILS % (AUTO) 1.2 % (0-2); EOSINOPHILS % (AUTO) 3.1 % (0-6); HEMATOCRIT 35.5 % (36.0-47.0); HEMOGLOBIN 12.4 g/dL (12.0-15.5); LYMPHOCYTES % (AUTO) 47.6 % (13-45); MEAN CORPUSCULAR HEMOGLOBIN 31.1 pg (27.0-33.4); MEAN CORPUSCULAR HGB CONC 34.9 g/dL (32.0-36.0); MEAN CORPUSCULAR VOLUME 89 fl (80-97); MONOCYTES % (AUTO) 8.6 % (3-13); PLATELET COUNT 209 10^3/uL (150-450); RED BLOOD COUNT 3.99 10^6/uL (3.72-5.28); RED CELL DISTRIBUTION WIDTH 12.6 % (11.5-14.0); SEGMENTED NEUTROPHILS % (AUTO) 39.5 % (42-78); TOTAL CELLS COUNTED % (AUTO) 100 %; WHITE BLOOD COUNT 3.8 10^3/uL (4.0-10.5)
[2018-02-09] MEDS ORDERED: METOCLOPRAMIDE HCL INJ/PF 10 MG/2 ML SDV IV ONE (13:58)
--- NOTE | 2018-02-09 13:58 | ER Document Report ---
ED General - General Chief Complaint: Headache Stated Complaint: BACK PAIN, HEADACHE Time Seen by Provider: 02/09/18 12:56 Mode of Arrival: Wheelchair Information source: Patient Notes: This is a 57-year-old female with a history of Parkinson's disease, peripheral vascular disease, diabetes with hyperosmolar syndrome the room with head and back pain for the past 2 weeks. Patient denies taking any medicines for the headache. She denies any history of migraine headaches. She states that it is dull and throbbing and it does come on very slowly. She states that she has not been sleeping that well and her Parkinson's seems to be worse because of this. She denies any fever, photophobia, neck stiffness, recent illnesses. TRAVEL OUTSIDE OF THE [place] IN LAST 30 DAYS: No - HPI Onset: This morning Onset/Duration: Gradual Quality of pain: Dull Severity: Moderate Pain Level: 3 Associated symptoms: denies: Chest pain, Fever, Shortness of breath Exacerbated by: Denies Relieved by: Denies Similar symptoms previously: Yes Recently seen / treated by doctor: No - Related Data Allergies/Adverse Reactions: Penicillins Allergy (Verified 02/09/18 12:28) Swelling of Throat aspirin Adverse Reaction (Intermediate, Verified 02/09/18 12:28) Past Medical History - General Information source: Patient - Social History Smoking Status: Never Smoker Cigarette use (# per day): No Chew tobacco use (# tins/day): No Frequency of alcohol use: None Drug Abuse: None Lives with: Family Family History: Reviewed & Not Pertinent Patient has suicidal ideation: No Patient has homicidal ideation: No - Past Medical History Cardiac Medical History: Reports: Hx Hypertension Denies: Hx Heart Attack Pulmonary Medical History: Denies: Hx Asthma Neurological Medical History: Reports: Other - Parkinson's disease. Denies: Hx Cerebrovascular Accident, Hx Seizures Endocrine Medical History: Reports: Hx Diabetes Mellitus Type 2 Renal/ Medical History: Denies: Hx Peritoneal Dialysis GI Medical History: Denies: Hx Hepatitis, Hx Hiatal Hernia, Hx Ulcer Psychiatric Medical History: Reports: Hx Depression Infectious Medical History: Denies: Hx Hepatitis Surgical Hx: Negative Past Surgical History: Denies: Hx Mastectomy, Hx Open Heart Surgery, Hx Pacemaker Review of Systems - Review of Systems Constitutional: denies: Chills, Fever EENT: No symptoms reported Cardiovascular: No symptoms reported Respiratory: No symptoms reported Gastrointestinal: Nausea, Vomiting Genitourinary: No symptoms reported Female Genitourinary: No symptoms reported Musculoskeletal: No symptoms reported Skin: No symptoms reported Hematologic/Lymphatic: No symptoms reported Neurological/Psychological: See HPI Physical Exam - Vital signs Vitals: Temp Pulse Resp BP Pulse Ox 97.7 F 74 12 160/84 H 98 02/09/18 12:34 02/09/18 12:34 02/09/18 12:34 02/09/18 12:34 02/09/18 12:34 Notes: Physical exam: GENERAL: She is alert and oriented x3, no acute distress. HEAD: Atraumatic, normocephalic. EYES: Pupils equal round and reactive to light, extraocular movements intact, sclera anicteric, conjunctiva are normal. ENT: TMs normal, nares patent, oropharynx clear without exudates. Moist mucous membranes. NECK: Normal range of motion, supple without obvious mass or JVD. LUNGS: Breath sounds clear to auscultation bilaterally and equal. No wheezes rales or rhonchi. HEART: Regular rate and rhythm without murmurs, rubs or gallops. ABDOMEN: Soft, normoactive bowel sounds. No tenderness to palpation. No guarding, no rebound. No masses appreciated. EXTREMITIES: Normal range of motion, no pitting or edema. No clubbing or cyanosis. NEUROLOGICAL: Cranial nerves II through XII grossly intact. Does have a tremor of the left upper extremity consistent with Parkinson's. Normal speech, moving all extremities. No focal weakness. There is no photophobia and her neck is supple. PSYCH: Normal mood, normal affect. SKIN: Warm, Dry, normal turgor, no rashes or lesions noted. Course - Re-evaluation Re-evalutation: 02/09/18 19:18 Patient is much improved after IV fluids and anti-emetics. Repeat exam shows a supple neck, no photophobia, nonfocal neurologic exam. Patient states she is feels good enough to go home. - Vital Signs Vital signs: Temp Pulse Resp BP Pulse Ox 97.7 F 67 16 164/79 H 99 02/09/18 17:42 02/09/18 17:42 02/09/18 17:42 02/09/18 17:42 02/09/18 17:42 - Laboratory Result Diagrams: 02/09/18 13:20 02/09/18 13:20 Laboratory results interpreted by me: 02/09/18 02/09/18 02/09/18 13:20 13:20 13:20 WBC 3.8 L Hct 35.5 L Seg Neutrophils % 39.5 L Lymphocytes % 47.6 H Absolute Neutrophils 1.5 L Carbon Dioxide 31 H BUN 24 H Est GFR (Non-Af Amer) 59 L Glucose 257 H AST 57 H Alkaline Phosphatase 140 H Urine Protein >=500 H Urine Glucose (UA) >=500 H Ur Leukocyte Esterase SMALL H Urine Ascorbic Acid 20 H - Diagnostic Test Radiology reviewed: Image reviewed, Reports reviewed - CT of the head shows no acute intra-cranial process Discharge - Discharge Clinical Impression: Headache Condition: Stable Disposition: HOME, SELF-CARE Instructions: Antinausea Medication (OM), Reglan (ON LICENSE OF [facility]) Additional Instructions: As we discussed, want you to rest, drink plenty of fluids, continue current medicines. You can take ibuprofen for pain. Take the Reglan for nausea and headache. Want you to follow-up with Dr. Menjivar before you leave for [place] on Thursday. Return to the emergency room for worsening headache, fever or any concerns or getting worse. Prescriptions: Metoclopramide HCl [Reglan 10 mg Tablet] 1 - 2 tab PO ASDIR PRN #10 tablet PRN Reason: Referrals: COLLIN MENJIVAR MD [Primary Care Provider] - 02/11/18
[2018-02-09 14:11] LABS: ALANINE AMINOTRANSFERASE 25 U/L (9-52); ALBUMIN 3.9 g/dL (3.5-5.0); ALKALINE PHOSPHATASE 140 U/L (38-126); ANION GAP 6 (5-19); ASPARTATE AMINO TRANSFERASE 57 U/L (14-36); BILIRUBIN,DIRECT 0.2 mg/dL (0.0-0.4); BILIRUBIN,TOTAL 0.4 mg/dL (0.2-1.3); BLOOD UREA NITROGEN 24 mg/dL (7-20); CALCIUM 9.1 mg/dL (8.4-10.2); CARBON DIOXIDE 31 mmol/L (22-30); CHLORIDE 100 mmol/L (98-107); GLUCOSE 257 mg/dL (75-110); POTASSIUM 4.7 mmol/L (3.6-5.0); TOTAL PROTEIN 8.1 g/dL (6.3-8.2)
--- NOTE | 2018-02-09 14:39 | RADIOLOGY REPORT (SQ) ---
EXAM DESCRIPTION: CT HEAD WITHOUT COMPLETED DATE/TIME: 02/09/2018 2:28 pm REASON FOR STUDY: headache COMPARISON: MR 01/27/2017 CT 07/20/2007 TECHNIQUE: Axial images acquired through the brain without intravenous contrast. Images reviewed wi th bone, brain and subdural windows. Additional sagittal and coronal reconstructions were generated. Images stored on PACS. All CT scanners at this facility use dose modulation, iterative reconstruction, and/or weight based d osing when appropriate to reduce radiation dose to as low as reasonably achievable (ALARA). [facility]: Dose Right [facility]: CareDose [facility]: Dose Right [facility]: Teradose 4D [facility]: [employer] RADIATION DOSE: CT Rad equipment meets quality standard of care and radiation dose reduction techniq ues were employed. CTDIvol: 53.2 mGy. DLP: 1070 mGy-cm. mGy. LIMITATIONS: None. FINDINGS: VENTRICLES: Normal size and contour. CEREBRUM: No masses. No hemorrhage. No midline shift. No evidence for acute infarction. Normal gra y/white matter differentiation. No areas of low density in the white matter. CEREBELLUM: No masses. No hemorrhage. No alteration of density. No evidence for acute infarction. EXTRAAXIAL SPACES: No fluid collections. No masses. ORBITS AND GLOBE: No intra- or extraconal masses. Normal contour of globe without masses. CALVARIUM: No fracture. PARANASAL SINUSES: No fluid or mucosal thickening. SOFT TISSUES: No mass or hematoma. OTHER: No other significant finding. IMPRESSION: NORMAL BRAIN CT WITHOUT CONTRAST. EVIDENCE OF ACUTE STROKE: NO. COMMENT: Quality ID # [id number]: Final reports with documentation of one or more dose reduction techniques (e.g., Automated exposure control, adjustment of the mA and/or kV according to patient size, use of iterative reconstruction technique) TECHNICAL DOCUMENTATION: JOB ID: [id number] [employer]- All Rights Reserved Reading location - IP/workstation name: [email or web address]
[2018-02-09] MEDS ORDERED: KETOROLAC TROMETHAMINE INJ/PF 30 MG/1 ML SDV IV ONE (14:50)
--- NOTE | 2018-02-09 14:54 | RADIOLOGY REPORT (SQ) ---
EXAM DESCRIPTION: L SPINE WHOLE COMPLETED DATE/TIME: 02/09/2018 2:33 pm REASON FOR STUDY: low back pain COMPARISON: None. NUMBER OF VIEWS: Five views including obliques. TECHNIQUE: AP, lateral, oblique, and sacral radiographic images acquired of the lumbar spine. LIMITATIONS: None. FINDINGS: MINERALIZATION: Normal. SEGMENTATION: Normal. No transitional anatomy. ALIGNMENT: Mild scoliosis convex to the right. Grade 1 anterolisthesis of L4 on L5 which appears deg enerative. . VERTEBRAE: Maintained height. No fracture or worrisome bone lesion. DISCS: Mild disc space loss at L4-5 with small osteophytes seen at the lower 3 levels. POSTERIOR ELEMENTS: Mild degenerative changes involving the facet joints. HARDWARE: None in the spine. PARASPINAL SOFT TISSUES: Calcifications in the right paraspinous soft tissues the majority of which a ppear to represent phleboliths. There is a questionable 7 mm proximal right ureteral stone. PELVIS: Intact as visualized. No fractures or worrisome bone lesions. SI joints intact. OTHER: No other significant finding. IMPRESSION: 1. Mild degenerative changes involving the lumbar spine. 2. Possible proximal right ureteral stone. If clinically indicated, CT scan could be performed for further evaluation. TECHNICAL DOCUMENTATION: JOB ID: [id number] [email or web address]- All Rights Reserved Reading location - IP/workstation name: [email or web address]
[2018-02-09] MEDS ORDERED: METOCLOPRAMIDE HCL INJ/PF 10 MG/2 ML SDV ONE (14:55)
[2018-02-09 15:19] LABS: APPEARANCE,URINE SLIGHTLY-CLOUDY; BILIRUBIN,URINE NEGATIVE (NEGATIVE); COLOR,URINE YELLOW; GLUCOSE, URINE >=500 mg/dL (NEGATIVE); KETONES,URINE NEGATIVE (NEGATIVE); LEUKOCYTE ESTERASE,URINE SMALL (NEGATIVE); NITRITE,URINE NEGATIVE (NEGATIVE); PROTEIN,URINE >=500 mg/dL (NEGATIVE); URINE SPECIFIC GRAVITY 1.011; UROBILINOGEN,URINE NEGATIVE mg/dL (<2.0)
[2018-02-09 17:44] VITALS: BP 164/79
== END 2018-02-09 17:44 | disposition home or self-care (01) ==
LOC: ER 12:26
DX: R51 Headache (principal); M54.9 Dorsalgia, unspecified; R11.2 Nausea with vomiting, unspecified; E11.51 Type 2 diabetes mellitus with diabetic peripheral angiopathy without gangrene; G20 Parkinson's disease; I10 Essential (primary) hypertension; Z88.0 Allergy status to penicillin
CPT/HCPCS: 99284; 96361; 96374; 96375; 36415; 85025; 85652; 80053; 81001; 72110; 70450; J1885; J2765; J7030

== ENCOUNTER → 2019-01-18 | Outpatient (CLI) | payer MEDICARE ==
--- NOTE | 2019-01-18 15:51 | WOMENS IMAGING REPORT ---
EXAM DESCRIPTION: 3D SCREENING MAMMO BILAT COMPLETED DATE/TIME: 01/18/2019 3:11 pm REASON FOR STUDY: Z12.31 ENCOUNTER FOR SCREENING MAMMOGRAM FOR MALIGNANT NEOPLASM OF BREAST Z12.31 ENCNTR SCREEN MAMMOGRAM FOR MALIGNANT NEOPLASM OF [place] COMPARISON: 2016, 2017 EXAM PARAMETERS: Views: Standard craniocaudal and mediolateral oblique views of each breast recorded using digital acquisition and breast tomosynthesis. Read with the assistance of CAD. .[facility] - [place] Version 9.2 LIMITATIONS: None. FINDINGS: No suspicious masses, suspicious calcifications or architectural distortion. No areas of c oncern. IMPRESSION: NEGATIVE MAMMOGRAM. BIRADS 1. BREAST DENSITY: a. The breasts are almost entirely fatty. BIRAD: ASSESSMENT: 1 NEGATIVE RECOMMENDATION: ROUTINE SCREENING Please continue yearly bilateral screening mammography/tomosynthesis in January 2020 COMMENT: The patient has been notified of the results by letter per MQSA requirements. Additional no tification policies are in place for contacting patient with suspicious or incomplete findings. Quality ID #[id number]: The [employer] recommends an annual screening mammogram for women aged 40 years or over. This facility utilizes a reminder system to ensure that all patients receive reminder letters, and/or direct phone calls for appointments. This includes reminders for routine scr eening mammograms, diagnostic mammograms, or other Breast Imaging Interventions when appropriate. Th is patient will be placed in the appropriate reminder system. TECHNICAL DOCUMENTATION: FINDING NUMBER: (1) ASSESSMENT: (1) JOB ID: [id number] [email or web address]- All Rights Reserved Reading location - IP/workstation name: [email or web address]
== END ==
LOC: WI 14:13
PROVIDERS: ATTEND Internal Medicine
DX: Z12.31 Encounter for screening mammogram for malignant neoplasm of breast (principal)
CPT/HCPCS: 77063; 77067

== ENCOUNTER 2019-02-14 23:53 | Emergency (ER) | payer MEDICARE ==
[2019-02-15 00:17] VITALS: BP 189/75
[2019-02-15] MEDS ORDERED: DIPH/PERTUSS(ACELL)/TETANUS VAC/PF 0.5 ML SYR (>=10YO) IM ONE (01:30)
--- NOTE | 2019-02-15 01:32 | ER Document Report ---
HPI - HPI Time Seen by Provider: 02/15/19 01:25 Pain Level: 5 Context: Patient is a 58-year-old female that comes to the emergency department for chief complaint of laceration to the left fourth toe. She states she was cutting her toenails with toenail clippers when she accidentally cut herself, she states it was bleeding a lot more than she expected so she became concerned. In addition to this she reports she is a diabetic and her tetanus is not up-to-date. She denies any other injuries or any other complaints. She is not on a blood thinner. - REPRODUCTIVE Reproductive: DENIES: : - DERM Skin Color: Normal Past Medical History - General Information source: Patient - Social History Smoking Status: Never Smoker Chew tobacco use (# tins/day): No Frequency of alcohol use: None Drug Abuse: None Lives with: Family Family History: Reviewed & Not Pertinent Patient has suicidal ideation: No Patient has homicidal ideation: No - Past Medical History Cardiac Medical History: Reports: Hx Hypertension Denies: Hx Heart Attack Pulmonary Medical History: Denies: Hx Asthma Neurological Medical History: Denies: Hx Cerebrovascular Accident, Hx Seizures Endocrine Medical History: Reports: Hx Diabetes Mellitus Type 2 Renal/ Medical History: Denies: Hx Peritoneal Dialysis GI Medical History: Denies: Hx Hepatitis, Hx Hiatal Hernia, Hx Ulcer Psychiatric Medical History: Reports: Hx Depression Infectious Medical History: Denies: Hx Hepatitis Past Surgical History: Denies: Hx Mastectomy, Hx Open Heart Surgery, Hx Pacemaker - Immunizations Immunizations up to date: Yes Hx Diphtheria, Pertussis, Tetanus Vaccination: Yes Vertical Provider Document - CONSTITUTIONAL General Appearance: WD/WN, No Apparent Distress - INFECTION CONTROL TRAVEL OUTSIDE OF THE [place] IN LAST 30 DAYS: No - HEENT HEENT: Atraumatic, Normocephalic - NECK Neck: Normal Inspection - RESPIRATORY Respiratory: Breath Sounds Normal, No Respiratory Distress - CARDIOVASCULAR Cardiovascular: Regular Rate, Regular Rhythm - GI/ABDOMEN Gastrointestinal: Abdomen Soft, Abdomen Non-Tender - BACK Back: Normal Inspection - MUSCULOSKELETAL/EXTREMETIES Musculoskeletal/Extremeties: MAEW, FROM, Tender - Over the left fourth toe at the tip of the toe just past the toenail there is a very tiny linear superficial laceration that has already closed on its own. There is no injury to the nail, no swelling, no tenderness over the foot otherwise, normal distal neurovascular exam, normal lower extremity otherwise. - NEURO Level of Consciousness: Awake, Alert, Appropriate Motor/Sensory: No Motor Deficit, No Sensory Deficit - DERM Integumentary: Warm, Dry, No Rash Course - Re-evaluation Re-evalutation: There is a very small superficial laceration over the left fourth toe just past the toenail which is already closed. This does not require repair. No concerning findings otherwise. Because of patient's injury, history of diabetes, she was treated with dressing and prophylaxis, her tetanus was updated. No additional recommendations at this time other than return precautions which were discussed in detail. Patient states appreciation and agreement. - Vital Signs Vital signs: Temp Pulse Resp BP Pulse Ox 98.1 F 80 18 189/75 H 100 02/15/19 00:15 02/15/19 00:15 02/15/19 00:15 02/15/19 00:15 02/15/19 00:15 Discharge - Discharge Clinical Impression: Toe laceration Qualifiers: Encounter type: initial encounter Toe: lesser toe Damage to nail status: without damage Foreign body presence: without foreign body Laterality: left Qualified Code(s): S91.115A - Laceration without foreign body of left lesser toe(s) without damage to nail, initial encounter Condition: Stable Disposition: HOME, SELF-CARE Additional Instructions: Keep the Xeroform (yellow) dressing on for 2 days. Keep area clean with soap and water, after the Xeroform is taken off keep a clean dressing with bacitracin or similar topical antibiotic over the area. Take the antibiotic as prescribed to avoid infection in the area. Follow-up with primary care. Come back for any signs of infection such as developing pain, developing or spreading redness, discolored discharge, fever/chills, or any other concerning symptoms. Prescriptions: Cephalexin Monohydrate [Keflex 500 mg Capsule] 500 mg PO TID 5 Days #15 capsule Forms: Elevated Blood Pressure Referrals: COLLIN MENJIVAR MD [Primary Care Provider] - Follow up as needed
== END 2019-02-15 01:59 | disposition home or self-care (01) ==
LOC: ER 23:53
DX: S91.115A Laceration without foreign body of left lesser toe(s) without damage to nail, initial encounter (principal); W26.8XXA Contact with other sharp object(s), not elsewhere classified, initial encounter; Y93.E8 Activity, other personal hygiene; E11.9 Type 2 diabetes mellitus without complications; I10 Essential (primary) hypertension; Z23 Encounter for immunization
CPT/HCPCS: 90471; 90715; 99283

== ENCOUNTER 2019-06-14 01:16 | Emergency (ER) | payer MEDICARE ==
[2019-06-14] MEDS ORDERED: ACETAMINOPHEN 325 MG TABLET PO ONE (01:33)
[2019-06-14] MEDS ORDERED: NORMAL SALINE 1000 ML 1,000 ML IV ONE (02:53)
[2019-06-14 03:13] LABS: VENOUS BLOOD BASE EXCESS 0.9 mmol/L; VENOUS BLOOD HCO3 24.4 mmol/L (20-32); VENOUS BLOOD PH 7.46 (7.30-7.42)
[2019-06-14 03:14] LABS: A TYPE INFLUENZA AG POSITIVE (NEGATIVE); B INFLUENZA AG NEGATIVE (NEGATIVE)
[2019-06-14] MEDS ORDERED: IBUPROFEN 800 MG TABLET PO ONE (03:24)
--- NOTE | 2019-06-14 03:53 | RADIOLOGY REPORT (SQ) ---
EXAM DESCRIPTION: XR CHEST 1 VIEW COMPLETED DATE/TME: 06/14/2019 02:52 CLINICAL HISTORY: 58 years, Female, cough/fever COMPARISON: None. NUMBER OF VIEWS: Single TECHNIQUE: LIMITATIONS: None. FINDINGS: Cardiomediastinal silhouette is prominent. Lungs grossly clear. No effusion. No pneumothorax IMPRESSION: No evidence of active intrathoracic disease copyright 2011 [employer]- All Rights Reserved
--- NOTE | 2019-06-14 04:52 | ER Document Report ---
Entered by RICHARDSON SÁNCHEZ SCRIBE 06/14/19 0249 Acting as scribe for:STEPHANIE DREW MD ED General - General Chief Complaint: Flu Symptoms Stated Complaint: FLU SYMPTOMS Time Seen by Provider: 06/14/19 02:38 Primary Care Provider: COLLIN MENJIVAR MD [Primary Care Provider] - Follow up as needed Information source: Patient Notes: 58-year-old female presents to the emergency department with flu-like symptoms that began 3 days ago. Patient reports body aches, fever, headache sore throat, rhinorrhea, green sputum, urine frequency and trouble swallowing. Patient denies hemoptysis, nose bleeds and dysuria. Patient said that she stopped taking her insulin for the past three days because she "was not feeling good enough to take it". Patient states that all she has had the past few days is soup. TRAVEL OUTSIDE OF THE [place] IN LAST 30 DAYS: No - Related Data Allergies/Adverse Reactions: Penicillins Allergy (Verified 02/09/18 12:28) Swelling of Throat aspirin Adverse Reaction (Intermediate, Verified 02/09/18 12:28) Past Medical History - General Information source: Patient - Social History Smoking Status: Never Smoker Cigarette use (# per day): No Chew tobacco use (# tins/day): No Family History: Reviewed & Not Pertinent Patient has suicidal ideation: No Patient has homicidal ideation: No - Past Medical History Cardiac Medical History: Reports: Hx Hypertension Endocrine Medical History: Reports: Hx Diabetes Mellitus Type 1 Psychiatric Medical History: Reports: Hx Depression Past Surgical History: Reports: Other - Bilateral Cataract Surgery - Immunizations Immunizations up to date: Yes Hx Diphtheria, Pertussis, Tetanus Vaccination: Yes Review of Systems - Review of Systems Constitutional: See HPI, Fever EENT: See HPI, Nose discharge, Throat pain, Difficulty swallowing Cardiovascular: No symptoms reported Respiratory: See HPI, Sputum. denies: Hemoptysis Gastrointestinal: No symptoms reported Genitourinary: See HPI, Frequency. denies: Dysuria Female Genitourinary: No symptoms reported Musculoskeletal: No symptoms reported Skin: No symptoms reported Hematologic/Lymphatic: No symptoms reported Neurological/Psychological: See HPI, Headaches -: Yes All other systems reviewed and negative Physical Exam - Vital signs Vitals: Temp Pulse Resp BP Pulse Ox 103.1 F H 98 18 161/68 H 98 02/25/20 01:28 06/14/19 01:28 06/14/19 01:28 06/14/19 01:28 06/14/19 01:28 - Notes Notes: Physical Exam: General: Alert. Appears ill. HEENT: Normocephalic. Atraumatic. PERRL. Extraocular movements intact. Oropharynx clear. Neck: Supple. Non-tender. Respiratory: No respiratory distress. Clear and equal breath sounds bilaterally. Cardiovascular: Regular rate and rhythm. Abdominal: Normal Inspection. Non-tender. No distension. Normal Bowel Sounds. Back: No gross abnormalities. Extremities: Moves all four extremities. Upper extremities: Normal inspection. Normal ROM. Lower extremities: Normal inspection. No edema. Normal ROM. Neurological: Normal cognition. AAOx4. Normal speech. Psychological: Normal affect. Normal Mood. Skin: Hot. Dry. Normal color. Course - Re-evaluation Re-evalutation: 06/14/19 04:44 Patient lying in bed no nausea vomiting no cough at this time. - Vital Signs Vital signs: Temp Pulse Resp BP Pulse Ox 102.5 F H 98 18 161/68 H 98 06/14/19 02:41 06/14/19 01:28 06/14/19 01:28 06/14/19 01:28 06/14/19 01:28 - Laboratory Laboratory results interpreted by me: 06/14/19 06/14/19 03:00 04:06 VBG pH 7.46 H POC Glucose 289 H - Diagnostic Test Radiology reviewed: Image reviewed, Reports reviewed Radiology results interpreted by me: 06/14/19 04:45 Chest x-ray does not show any acute infiltrate no acute cardiopulmonary disease. Discharge - Discharge Clinical Impression: Influenza A, Fever, Acute bronchitis, Insulin dependent type 1 diabetes mellitus, Hyperglycemia due to type 1 diabetes mellitus Condition: Stable Disposition: HOME, SELF-CARE Instructions: Acetaminophen, Influenza ([facility]) [id number] Additional Instructions: Diabetes You have an abnormally high blood sugar, suspicious for diabetes. Not all high blood sugar requires long-term treatment. High blood sugar can be due to medications, , or the stress of illness. (These cases are "borderline diabetes.") If the doctor feels your high blood sugar might get better with time, you may not require treatment now. You will be scheduled for further evaluation. It's very important that you follow through. Uncontrolled high blood sugar leads to early heart disease, strokes, nerve damage, eye damage, and kidney damage. All diabetics should follow a diet designed to control the blood sugar. Overweight diabetics should exercise regularly and lose weight. If this is not sufficient to control the blood sugar, pills or insulin shots are necessary. Younger people who develop diabetes almost always require insulin daily. Home testing of blood sugars or urine sugar is required. Diabetic teaching is available to help you figure insulin doses and monitor the blood sugar. Call the physician if there is faintness, excess sleepiness, or very rapid breathing. If hypoglycemia (LOW blood sugar) develops, symptoms are shakiness, weakness, sweating, and confusion. In this case, you should eat or drink something with sugar at once. Hyperglycemia (High Blood Sugar) You have an abnormally high blood sugar. Not all high blood sugar requires long-term treatment. High blood sugar can be due to medications, , or the stress of illness. (These cases are "borderline diabetes.") If the doctor feels your high blood sugar might resolve with time, you may not require treatment now. You will be scheduled for further evaluation. It's very important that you follow through, to see if the blood sugar returns to normal levels. Uncontrolled high blood sugar leads to early heart disease, strokes, nerve damage, eye damage, and kidney damage. Call the physician if there is faintness, excess sleepiness, or very rapid breathing.Bronchitis You have acute bronchitis. This disease is an infection or inflammation of the air passageways in your lungs. Symptoms usually include cough, low grade f ever, shortness of breath, and wheezing. The cough usually persists for a couple of weeks. Most cases of bronchitis get better without antibiotics. We prescribe antibiotics when we believe bacteria are damaging your airways, or if there's high risk the bronchitis will worsen into pneumonia. Increase your fluid intake. A cool mist humidifier may make your lungs more comfortable. An expectorant (cough medicine that loosens phlegm) can help. If you smoke, STOP!!! Recovery from bronchitis can be somewhat slow, but you should see improvement within a day or two. Repeated episodes of bronchitis may result in lung damage -- for example, chronic bronchitis, recurrent pneumonias, or emphysema. Call the doctor if you develop increasing fever, shortness of breath, chest pain, bloody sputum, or otherwise worsen. If you have not improved at all after several days, contact the physician. Prescriptions: Oseltamivir Phosphate [Tamiflu 75 mg Capsule] 75 mg PO BID 5 Days #10 capsule Azithromycin [Zithromax 250 mg Tablet] 250 mg PO ASDIR PRN #6 tablet PRN Reason: Referrals: COLLIN MENJIVAR MD [Primary Care Provider] - Follow up as needed I personally performed the services described in the documentation, reviewed and edited the documentation which was dictated to the scribe in my presence, and it accurately records my words and actions.
[2019-06-14 05:16] VITALS: BP 128/72
== END 2019-06-14 05:16 | disposition home or self-care (01) ==
LOC: ER 01:16
DX: J11.1 Influenza due to unidentified influenza virus with other respiratory manifestations (principal); J20.9 Acute bronchitis, unspecified; E10.65 Type 1 diabetes mellitus with hyperglycemia; M79.10 Myalgia, unspecified site; R50.9 Fever, unspecified; I10 Essential (primary) hypertension; Z79.4 Long term (current) use of insulin
CPT/HCPCS: 99283; 96360; 96361; 36415; 82962; 82803; 87804; 71045; A9270 ×2; J7030

== ENCOUNTER → 2019-11-07 | Outpatient (CLI) | payer MEDICARE ==
--- NOTE | 2019-11-07 12:54 | RADIOLOGY REPORT (SQ) ---
EXAM DESCRIPTION: KNEE LEFT 2 VIEWS IMAGES COMPLETED DATE/TIME: 11/07/2019 12:15 pm REASON FOR STUDY: W10.8XXA FALL (ON) (FROM) OTHER STAIRS AND STEPS, INITIAL ENCOUNTER W10.8XXA FALL (ON) (FROM) OTHER STAIRS AND STEPS, INITIAL EN COMPARISON: None. NUMBER OF VIEWS: Two views. TECHNIQUE: AP and lateral radiographic images acquired of the left knee. LIMITATIONS: None. FINDINGS: MINERALIZATION: Normal. BONES: No acute fracture or dislocation. No worrisome bone lesions. JOINT: Posterior patellar and trochlear osteophytes. No joint effusion. SOFT TISSUES: No soft tissue swelling. No radio-opaque foreign body. OTHER: No other significant finding. IMPRESSION: Patellofemoral degenerative joint changes. No acute finding. TECHNICAL DOCUMENTATION: JOB ID: [id number] 2010 [employer]- All Rights Reserved Reading location - IP/workstation name: [email or web address]
--- NOTE | 2019-11-07 12:55 | RADIOLOGY REPORT (SQ) ---
EXAM DESCRIPTION: SHOULDER LEFT 2 OR MORE VIEWS IMAGES COMPLETED DATE/TIME: 11/07/2019 12:15 pm REASON FOR STUDY: W10.8XXA FALL (ON) (FROM) OTHER STAIRS AND STEPS, INITIAL ENCOUNTER W10.8XXA FALL (ON) (FROM) OTHER STAIRS AND STEPS, INITIAL EN COMPARISON: None. NUMBER OF VIEWS: Three views. TECHNIQUE: Internal rotation, external rotation, and Y view images acquired of the left shoulder. LIMITATIONS: None. FINDINGS: MINERALIZATION: Normal. BONES: No acute fracture. No worrisome bone lesions. JOINTS: No dislocation. VISUALIZED LUNGS AND RIBS: No pneumothorax. No rib fracture. SOFT TISSUES: No radiopaque foreign body. OTHER: No other significant finding. IMPRESSION: NEGATIVE STUDY OF THE LEFT SHOULDER. NO RADIOGRAPHIC EVIDENCE OF ACUTE INJURY. TECHNICAL DOCUMENTATION: JOB ID: [id number] 2010 [employer]- All Rights Reserved Reading location - IP/workstation name: [email or web address]
--- NOTE | 2019-11-07 12:56 | RADIOLOGY REPORT (SQ) ---
EXAM DESCRIPTION: WRIST LEFT 2 VIEWS IMAGES COMPLETED DATE/TIME: 11/07/2019 12:15 pm REASON FOR STUDY: W10.8XXA FALL (ON) (FROM) OTHER STAIRS AND STEPS, INITIAL ENCOUNTER W10.8XXA FALL (ON) (FROM) OTHER STAIRS AND STEPS, INITIAL EN COMPARISON: None. NUMBER OF VIEWS: Two views. TECHNIQUE: AP and lateral radiographic images acquired of the left wrist. LIMITATIONS: None. FINDINGS: MINERALIZATION: Normal. BONES: No acute fracture or dislocation. No worrisome bone lesions. Normal alignment. SOFT TISSUES: No soft tissue swelling. No foreign body. OTHER: No other significant finding. IMPRESSION: NEGATIVE STUDY OF THE LEFT WRIST. NO RADIOGRAPHIC EVIDENCE OF ACUTE INJURY. TECHNICAL DOCUMENTATION: JOB ID: [id number] 2010 [employer]- All Rights Reserved Reading location - IP/workstation name: [email or web address]
--- NOTE | 2019-11-07 12:57 | RADIOLOGY REPORT (SQ) ---
EXAM DESCRIPTION: ELBOW LEFT AP/LATERAL IMAGES COMPLETED DATE/TIME: 11/07/2019 12:15 pm REASON FOR STUDY: W10.8XXA FALL (ON) (FROM) OTHER STAIRS AND STEPS, INITIAL ENCOUNTER W10.8XXA FALL (ON) (FROM) OTHER STAIRS AND STEPS, INITIAL EN COMPARISON: None. NUMBER OF VIEWS: Two views. TECHNIQUE: AP and lateral radiographic images acquired of the left elbow. LIMITATIONS: None. FINDINGS: MINERALIZATION: Normal. BONES: No acute fracture or dislocation. No worrisome bone lesions. JOINT: No effusion. SOFT TISSUES: No soft tissue swelling. No foreign body. OTHER: No other significant finding. IMPRESSION: NEGATIVE STUDY OF THE LEFT ELBOW. NO RADIOGRAPHIC EVIDENCE OF ACUTE INJURY. TECHNICAL DOCUMENTATION: JOB ID: [id number] 2010 [employer]- All Rights Reserved Reading location - IP/workstation name: [email or web address]
== END ==
LOC: RAD 11:49
PROVIDERS: ATTEND Internal Medicine
DX: Z04.3 Encounter for examination and observation following other accident (principal); M17.12 Unilateral primary osteoarthritis, left knee; W10.8XXA Fall (on) (from) other stairs and steps, initial encounter